=== PATIENT | male | born 1955 | race African-American/Black ===

== ENCOUNTER 2016-11-18 16:36 | Emergency (ER) | payer MEDICARE, MEDICAID ==
[2016-11-18] MEDS ORDERED: PREDNISONE 20 MG TABLET PO ONE (16:45)
[2016-11-18] MEDS ORDERED: IPRATROPIUM/ALBUTEROL 0.5-2.5 MG/3 ML AMPUL NEB ONE (16:45)
--- NOTE | 2016-11-18 16:48 | ER Document Report ---
ED Respiratory Problem - General Chief Complaint: Shortness Of Breath Stated Complaint: BREATHING ISSUES Time Seen by Provider: 11/18/16 16:45 Notes: The patient is a 61-year-old male, past medical history asthma, former smoker, presents with 3 days of increasing shortness of breath and wheezing. He is moving and his albuterol pump is packed, so he does not have access to this. His last asthma exacerbation was 4 months ago. He denies fevers, sputum, rash, chest pain, leg swelling, nausea, vomiting, back pain, hemoptysis or abdominal pain. TRAVEL OUTSIDE OF THE [place] IN LAST 30 DAYS: No - Related Data Allergies/Adverse Reactions: No Known Allergies Allergy (Unverified 11/18/16 16:40) Past Medical History - General Information source: Patient - Social History Smoking Status: Former Smoker Family History: Reviewed & Not Pertinent Patient has suicidal ideation: No Patient has homicidal ideation: No Renal/ Medical History: Denies: Hx Peritoneal Dialysis Review of Systems - Review of Systems Notes: REVIEW OF SYSTEMS: CONSTITUTIONAL: -fevers, -chills EENT: -eye pain, -difficulty swallowing, -nasal congestion CARDIOVASCULAR:-chest pain, -syncope. RESPIRATORY: +cough, +SOB GASTROINTESTINAL: -abdominal pain, - nausea, -vomiting, -diarrhea GENITOURINARY: -dysuria, -hematuria MUSCULOSKELETAL: -back pain, -neck pain SKIN: -rash or skin lesions. HEMATOLOGIC: -easy bruising or bleeding. LYMPHATIC: -swollen, enlarged glands. NEUROLOGICAL: -altered mental status or loss of consciousness, -headache, - neurologic symptoms PSYCHIATRIC: -anxiety, -depression. ALL OTHER SYSTEMS REVIEWED AND NEGATIVE. Physical Exam - Vital signs Vitals: Temp Pulse Resp BP Pulse Ox 98.0 F 77 22 H 131/87 H 95 11/18/16 16:41 11/18/16 16:41 11/18/16 16:41 11/18/16 16:41 11/18/16 16:41 - Notes Notes: PHYSICAL EXAMINATION: GENERAL: Well-appearing, well-nourished and in no acute distress. HEAD: Atraumatic, normocephalic. EYES: Pupils equal round and reactive to light, extraocular movements intact, sclera anicteric, conjunctiva are normal. ENT: nares patent, oropharynx clear without exudates. Moist mucous membranes. NECK: Normal range of motion, supple without lymphadenopathy LUNGS: Mild tachypnea, moderate wheezing B/L HEART: Regular rate and rhythm without murmurs ABDOMEN: Soft, nontender, normoactive bowel sounds. No guarding, no rebound. No masses appreciated. EXTREMITIES: Normal range of motion, no pitting or edema. No cyanosis. NEUROLOGICAL: Cranial nerves grossly intact. Normal speech, normal gait. Normal sensory and motor exams. PSYCH: Normal mood, normal affect. SKIN: Warm, Dry, normal turgor, no rashes or lesions noted. Course - Re-evaluation Re-evalutation: Patient with mild wheezing, but no respiratory distress. After steroids and duonebs, patient's wheezing has resolved and he feels much better. Will send home with steroids and a refill of his albuterol. Given strict return precautions and he understands - Vital Signs Vital signs: Temp Pulse Resp BP Pulse Ox 98.0 F 77 22 H 131/87 H 95 11/18/16 16:41 11/18/16 16:41 11/18/16 16:41 11/18/16 16:41 11/18/16 16:41 Discharge - Discharge Clinical Impression: Acute asthma exacerbation Qualifiers: Asthma severity: unspecified severity Qualified Code(s): J45.901 - Unspecified asthma with (acute) exacerbation Condition: Good Disposition: HOME, SELF-CARE Additional Instructions: ASTHMA: You have been diagnosed as having asthma. This is a condition where there is episodic tightness in the bronchial tubes. Allergies, infections, and polluted or cold air may be contributing factors. Emergency treatment of a severe asthma attack may include adrenaline shots , or bronchodilator aerosol. You may feel lightheaded, have a decreased exercise tolerance and a rapid pulse for an hour or two. Rest and get plenty of fluids. Home treatment of asthma requires bronchodilator drugs. These can be administered by injection, inhalation, or by mouth. Antibiotics and corticosteroids may be required for some patients. You should avoid chemical fumes, dusts, pollens, and exercising in very cold or dry air. If you smoke, stop!! If you develop a fever, increased wheezing, chest pain, or severe shortness of breath, you should contact the doctor immediately. STEROID MEDICATION: You have been given an injection of or oral medicine of the cortisone/ steroid class. This medication is used to control inflammation or allergy. Dexter t is usually only given for a short period of time, until the acute process subsides. There are usually no side effects from short-term use of cortisone-like medications. Some persons feel an increased sense of well-being and are not sleepy at bedtime. Long-term use of cortisone medications is best avoided, unless required for a severe condition. If your condition does not remit, or relapses after the course of corticosteroid medication, you should consult your physician. INHALED BRONCHODILATORS: You have received treatment(s) of and/or prescription for an inhaled bronchodilator -- a medication which stimulates the airways in the lung to dilate. This improves the flow of air in asthma, bronchitis, and emphysema. These medicines have some similarity to adrenaline, and can cause similar side effects: shakiness, racing heart, and a sense of nervousness. These side effects decrease with time. Contact your doctor if these side effects are severe. Do not over-use the medicine. Too-frequent use of the inhaler may make it ineffective. Call your doctor if the inhaler is not controlling your symptoms at the prescribed doses. SMOKING: If you smoke, you should stop smoking. The tar and chemicals in cigarette smoke are harmful. Smoking has been shown to cause: emphysema chronic bronchitis lung cancer mouth and throat cancer stomach and pancreas cancer premature aging defects In addition, smoking increases ear and lung infections in children of smokers. USE OF ACETAMINOPHEN: Acetaminophen may be taken for pain relief or fever control. It's much safer than aspirin, offering a wider range of "safe" dosages. It is safe during . Some brand names are Tylenol, Panadol, Datril, Anacin 3, Tempra, and Liquiprin. Acetaminophen can be repeated every four hours. The following are maximum recommended dosages: USE OF ACETAMINOPHEN (Tylenol): Acetaminophen may be taken for pain relief or fever control. It's much safer than aspirin, offering a wider range of "safe" dosages. It is safe during . Some brand names are Tylenol, Panadol, Datril, Anacin 3, Tempra, and Liquiprin. Acetaminophen can be repeated every four hours. The following are maximum recommended dosages: WEIGHT Dose Drops Elixir Chewable( 80mg) (LBS.) drprs=droppers tsp=teaspoon 6 40 mg 0.4 ml (1/2) 6-11 80 mg 0.8 ml (full) tsp 1 tab 12-16 120 mg 1 1/2 drprs 3/4 tsp 1 1/2 tabs 17-23 160 mg 2 drprs 1 tsp 2 tabs 24-30 240 mg 3 drprs 1 1/2 tsp 3 tabs 30-35 320 mg 2 tsp 4 tabs 36-41 360 mg 2 1/4 tsp 4 1/2 tabs 42-47 400 mg 2 1/2 tsp 5 tabs 48-53 480 mg 3 tsp 6 tabs 54-59 520 mg 3 1/4 tsp 6 1/2 tabs 60-64 560 mg 3 1/2 tsp 7 tabs 65-70 600 mg 3 3/4 tsp 7 1/2 tabs 71-76 640 mg 4 tsp 8 tabs 77-82 720 mg 4 1/2 tsp 9 tabs 83-88 800 mg 5 tsp 10 tabs >89 pounds or adults 650 mg to 900 mg Acetaminophen can be repeated every four hours. Maximum dose not to exceed 4000 mg a day. These maximum recommended dosages are slightly higher than the dosages written on the product container, but these dosages are very safe and below the toxic dosage for acetaminophen. FOLLOW-UP CARE: If you have been referred to a physician for follow-up care, call the physician s office for an appointment as you were instructed or within the next two days. If you experience worsening or a significant change in your symptoms, notify the physician immediately or return to the Emergency Department at any time for re-evaluation. Prescriptions: Albuterol Sulfate [Proair HFA Inhalation Aerosol 8.5 gm MDI] 2 puff IH Q4H PRN # 1 mdi PRN Reason: Prednisone [Deltasone 20 mg Tablet] 3 tab PO DAILY 5 Days
[2016-11-18 18:20] VITALS: BP 152/77
== END 2016-11-18 18:12 | disposition home or self-care (01) ==
LOC: MERGE 16:36 → ER 16:36
DX: J45.901 Unspecified asthma with (acute) exacerbation (principal); R06.02 Shortness of breath; Z87.891 Personal history of nicotine dependence
CPT/HCPCS: 94640; 99284; A9270 ×2; J7512; J7620

== ENCOUNTER 2016-12-05 01:44 | Inpatient (IN) | payer MEDICARE, MEDICAID ==
[2016-12-05] MEDS ORDERED: MAGNESIUM SULFATE/D5W 2 GM/200 ML RTUPB IV ONE (01:51)
--- NOTE | 2016-12-05 01:53 | ER Document Report ---
ED General - General Stated Complaint: SHORTNESS OF BREATH Time Seen by Provider: 12/05/16 01:49 Notes: Patient is a 61-year-old male presents with complaint of difficulty breathing and wheezing. He has a history of asthma. Former smoker. He quit 2 months ago. He has never had to be placed on a ventilator. He was seen in the emergency department recently. He was given a prescription for an inhaler but he recently moved to the area and he had a hard time getting his insurance to cover the inhaler. He has been taking the prednisone. He says his breathing has gradually gotten worse. No fevers. No chest pain. No other complaints at this time. Patient was brought in by paramedics. He was given Solu-Medrol as well as 1 DuoNeb treatment. - Related Data Allergies/Adverse Reactions: No Known Allergies Allergy (Verified 12/05/16 03:23) Past Medical History - Social History Smoking Status: Former Smoker Frequency of alcohol use: None Drug Abuse: None Family History: Reviewed & Not Pertinent Review of Systems - Review of Systems Notes: My Normal Review Basic REVIEW OF SYSTEMS: CONSTITUTIONAL : Denies fever, chills, or sweats. Denies recent illness. EENT: Denies eye, ear, throat, or mouth pain or symptoms. Denies nasal or sinus congestion. CARDIOVASCULAR: Denies chest pain. RESPIRATORY: wheezing GASTROINTESTINAL: Denies abdominal pain. Denies nausea, vomiting, or diarrhea. Denies constipation. Last BM: MUSCULOSKELETAL: Denies neck or back pain or joint pain or swelling. SKIN: Denies rash or skin lesions. NEUROLOGICAL: Denies altered mental status or loss of consciousness. Denies headache. Denies weakness or paralysis or loss of use of either side. Denies problems with gait or speech. Denies sensory or motor loss. ALL OTHER SYSTEMS REVIEWED AND NEGATIVE. Physical Exam - Vital signs Vitals: Pulse Ox 95 12/05/16 01:46 - Notes Notes: General Appearance: Well nourished, alert, cooperative, mild acute distress, no obvious discomfort. Vitals: reviewed, See vital signs table. Head: no swelling or tenderness to the head Eyes: PERRL, EOMI, Conjuctiva clear Mouth: No decreasd moisture Neck: Supple, no neck tenderness, No thyromegaly Lungs: diffuse wheezing, No rales, No rhonci, No accessory muscle use, fair air exchange bilaterally. Heart: Normal rate, Regular rythm, No murmur, no rub Abdomen: Normal BS, soft, No rigidity, No abdominal tenderness, No guarding, no rebound, no abdominal masses, no organomegaly Extremities: strength 5/5 in all extremities, good pulses in all extremities, no swelling or tenderness in the extremities, no edema. Skin: warm, dry, appropriate color, no rash Neuro: speech clear, oriented x 3, normal affect, responds appropriately to questions. Course - Re-evaluation Re-evalutation: 12/05/16 02:46 Patient's work of breathing is improved however his lung lares show very tight wheezing. I will give him 2 more DuoNeb treatments and then reassess. - Vital Signs Vital signs: Temp Pulse Resp BP Pulse Ox 98.9 F 62 20 111/76 95 12/05/16 02:43 12/05/16 02:43 12/05/16 02:43 12/05/16 02:43 12/05/16 02:43 - Laboratory Result Diagrams: 12/05/16 01:55 12/05/16 01:55 Laboratory results interpreted by me: 12/05/16 12/05/16 12/05/16 01:55 01:55 02:24 WBC 13.2 H RDW 14.8 H VBG pH 7.44 H Chloride 109 H Total Protein 5.9 L Albumin 3.3 L Urine Urobilinogen 12/05/16 02:25 WBC RDW VBG pH Chloride Total Protein Albumin Urine Urobilinogen 2.0 H - EKG Interpretation by Me Additional EKG results interpreted by me: 12/05/16 02:50 EKG is reviewed and interpreted by me. EKG shows sinus bradycardia with rate of [address] segment elevation or depression. No ischemic T-wave inversions. IA interval, QRS duration, QTc intervals are within normal range. No old EKG available for comparison. - Transfer of Care Notes: 12/05/16 04:11 Patient continues to have a lot of tightness and wheezing in his lungs. He still has mild tachypnea but is not working hard to breathe. Due to his failure of outpatient therapy as well as his continued wheezing and decreased air movement I think it appropriate to admit him. Chest x-ray is read as possible pneumonia. He has had no fevers and I do not see pneumonia on chest x- ray myself. These findings seem much more consistent with just an asthma exacerbation. I have spoken with the hospitalist who agrees to admit the patient. Dictation of this chart was performed using voice recognition software; therefore, there may be some unintended grammatical errors. Discharge - Discharge Clinical Impression: Asthma Qualifiers: Asthma severity: unspecified severity Asthma complication type: with acute exacerbation Qualified Code(s): J45.901 - Unspecified asthma with (acute) exacerbation Condition: Stable Disposition: ADMITTED OBSERVATION Admitting Provider: Hospitalist Unit Admitted: Telemetry
[2016-12-05 02:08] LABS: ABSOLUTE BASOPHILS # (AUTO) 0.1 10^3/uL (0.0-0.2); ABSOLUTE EOSINOPHILS # (AUTO) 0.3 10^3/uL (0.0-0.6); ABSOLUTE LYMPHOCYTES (AUTO) 4.3 10^3/uL (0.5-4.7); ABSOLUTE MONOCYTES (AUTO) 1.2 10^3/uL (0.1-1.4); ABSOLUTE NEUT (AUTO) 7.3 10^3/uL (1.7-8.2); BASOPHILS % (AUTO) 0.9 % (0-2); EOSINOPHILS % (AUTO) 2.6 % (0-6); HEMATOCRIT 47.5 % (37.9-51.0); HEMOGLOBIN 15.6 g/dL (13.5-17.0); HGB HCT DIFFERENCE -0.7; LYMPHOCYTES % (AUTO) 32.3 % (13-45); MEAN CORPUSCULAR HEMOGLOBIN 30.3 pg (27.0-33.4); MEAN CORPUSCULAR HGB CONC 32.9 g/dL (32.0-36.0); MEAN CORPUSCULAR VOLUME 92 fl (80-97); MONOCYTES % (AUTO) 8.9 % (3-13); RED BLOOD COUNT 5.16 10^6/uL (4.35-5.55); RED CELL DISTRIBUTION WIDTH 14.8 % (11.5-14.0); SEGMENTED NEUTROPHILS % (AUTO) 55.3 % (42-78); WHITE BLOOD COUNT 13.2 10^3/uL (4.0-10.5)
[2016-12-05] MEDS: MAGNESIUM SULFATE/D5W 100 ML IV SCH ×2 (02:09→02:10)
--- NOTE | 2016-12-05 02:21 | RADIOLOGY REPORT (SQ) ---
EXAM DESCRIPTION: CHEST SINGLE VIEW COMPLETED DATE/TIME: 12/05/2016 2:11 am REASON FOR STUDY: SHORTNESS OF BREATH COMPARISON: None. EXAM PARAMETERS: NUMBER OF VIEWS: One view. TECHNIQUE: Single frontal radiographic view of the chest acquired. RADIATION DOSE: NA LIMITATIONS: None. FINDINGS: LUNGS AND PLEURA: Moderate left basilar opacity, mixed bandlike/streaky. MEDIASTINUM AND HILAR STRUCTURES: No masses. Contour normal. HEART AND VASCULAR STRUCTURES: Heart normal in size. Normal vasculature. BONES: No acute findings. HARDWARE: None in the chest. OTHER: No other significant finding. IMPRESSION: Left basilar pneumonia, atelectasis, and/or scar. TECHNICAL DOCUMENTATION: JOB ID: [id number]
[2016-12-05 02:24] LABS: ALANINE AMINOTRANSFERASE 28 U/L (21-72); ALBUMIN 3.3 g/dL (3.5-5.0); ALKALINE PHOSPHATASE 99 U/L (38-126); ANION GAP 6 (5-19); ASPARTATE AMINO TRANSFERASE 18 U/L (17-59); BILIRUBIN,DIRECT 0.3 mg/dL (0.0-0.4); BILIRUBIN,TOTAL 0.4 mg/dL (0.2-1.3); BLOOD UREA NITROGEN 18 mg/dL (7-20); CALCIUM 9.1 mg/dL (8.4-10.2); CARBON DIOXIDE 27 mmol/L (22-30); CHLORIDE 109 mmol/L (98-107); CREATININE RESULT 0.92 mg/dL (0.52-1.25); GLUCOSE 94 mg/dL (75-110); POTASSIUM 4.1 mmol/L (3.6-5.0); SODIUM 141.8 mmol/L (137-145); TOTAL PROTEIN 5.9 g/dL (6.3-8.2)
[2016-12-05] MEDS ORDERED: IPRATROPIUM/ALBUTEROL 0.5-2.5 MG/3 ML AMPUL NEB ONE (02:46)
[2016-12-05 02:48] LABS: VENOUS BLOOD BASE EXCESS 1.5 mmol/L; VENOUS BLOOD HCO3 25.5 mmol/L (20-32); VENOUS BLOOD PCO2 38.6 mmHg (35-63); VENOUS BLOOD PH 7.44 (7.30-7.42)
[2016-12-05 02:50] LABS: APPEARANCE,URINE CLEAR; BILIRUBIN,URINE NEGATIVE (NEGATIVE); GLUCOSE, URINE NEGATIVE (NEGATIVE); KETONES,URINE NEGATIVE (NEGATIVE); LEUKOCYTE ESTERASE,URINE NEGATIVE (NEGATIVE); NITRITE,URINE NEGATIVE (NEGATIVE); PROTEIN,URINE NEGATIVE (NEGATIVE); URINE SPECIFIC GRAVITY 1.025
[2016-12-05] MEDS ORDERED: ALBUTEROL SULFATE 0.083% NEB 2.5 MG/3 ML AMPUL NEB ONE (04:05)
[2016-12-05] MEDS ORDERED: IPRATROPIUM/ALBUTEROL 0.5-2.5 MG/3 ML AMPUL NEB PRN (04:15)
[2016-12-05] MEDS ORDERED: ACETAMINOPHEN 325 MG TABLET PO PRN (04:15)
[2016-12-05 04:40] LABS: MAGNESIUM 2.1 mg/dL (1.6-2.3)
[2016-12-05 04:52] LABS: CREATINE KINASE MB 0.92 ng/mL (<4.55)
[2016-12-05 05:02] LABS: TROPONIN I < 0.012 ng/mL
[2016-12-05] MEDS ORDERED: FLUTICASONE NASAL SPRAY 50 MCG/SPRY 120 SPRAY/16 GM NASL ONE (05:15)
--- NOTE | 2016-12-05 05:33 | PDOC H&P ---
History of Present Illness Admission Date/PCP: 12/05/16 04:15 DUARTE PERAZA MD Patient complains of: Shortness of breath and cough History of Present Illness: KENN JESSICA is a 61 year old male with a past medical history of COPD, chronic bronchitis, chronic pain, hypertension, Tobacco Dependence, and unclear recent diagnosis of renal tumor. Patient states he been in his usual state of health until approximately 6 hours prior to presentation having exceptional exacerbation of shortness of breath with nonproductive cough and wheeze similar to multiple previous episodes. He has recently relocated from [place] and run out of his usual inhaler. He states discontinuation of tobacco 3 months ago but smells of smoke and resides with a smoker, denies any known triggers of asthma. He denies chest pain nausea vomiting or diaphoresis. In the emergency room he is received several inhaler treatments of albuterol and Atrovent with magnesium IV and steroids. He is somewhat improved and referred to the hospitalist for admission. Past Medical History Cardiac Medical History: Reports: Hypertension Pulmonary Medical History: Reports: Bronchitis, Chronic Obstructive Pulmonary Disease (COPD) Musculoskeltal Medical History: Reports: Arthritis Psychiatric Medical History: Reports: Tobacco Dependency, Other - Opiate dependent chronic pain though presents without prescription bottles. Social History Information Source: Patient Lives with: Alone Smoking Status: Former Smoker Cigarettes Packs Per Day: 40 Frequency of Alcohol Use: Rare Drugs: None - Advance Directive Resuscitation Status: Full Code Family History Family History: COPD Parental Family History Reviewed: Yes Children Family History Reviewed: Yes Sibling(s) Family History Reviewed.: Yes Medication/Allergy Allergies/Adverse Reactions: No Known Allergies Allergy (Verified 12/05/16 03:23) Review of Systems Constitutional: ABSENT: chills, fever(s), headache(s), weight gain, weight loss Eyes: ABSENT: visual disturbances Ears: ABSENT: hearing changes Cardiovascular: ABSENT: chest pain, dyspnea on exertion, edema, orthropnea, palpitations Respiratory: ABSENT: cough, hemoptysis Gastrointestinal: ABSENT: abdominal pain, constipation, diarrhea, hematemesis, hematochezia, nausea, vomiting Genitourinary: ABSENT: dysuria, hematuria Musculoskeletal: ABSENT: joint swelling Integumentary: ABSENT: rash, wounds Neurological: ABSENT: abnormal gait, abnormal speech, confusion, dizziness, focal weakness, syncope Psychiatric: ABSENT: anxiety, depression, homidical ideation, suicidal ideation Endocrine: ABSENT: cold intolerance, heat intolerance, polydipsia, polyuria Hematologic/Lymphatic: ABSENT: easy bleeding, easy bruising Physical Exam Vital Signs: Temp Pulse Resp BP Pulse Ox 97.8 F 62 18 127/72 H 96 12/05/16 03:03 12/05/16 02:43 12/05/16 04:01 12/05/16 04:01 12/05/16 04:01 General appearance: PRESENT: cooperative, mild distress, well-developed, well- nourished Head exam: PRESENT: atraumatic, normocephalic Eye exam: PRESENT: conjunctiva pink, EOMI, PERRLA. ABSENT: scleral icterus Ear exam: PRESENT: normal external ear exam Mouth exam: PRESENT: moist, tongue midline Neck exam: ABSENT: carotid bruit, JVD, lymphadenopathy, thyromegaly Respiratory exam: PRESENT: accessory muscle use, prolonged expiratory phas, rales, tachypnea, wheezes Cardiovascular exam: PRESENT: RRR. ABSENT: diastolic murmur, rubs, systolic murmur Pulses: PRESENT: normal dorsalis pedis pul Vascular exam: PRESENT: normal capillary refill GI/Abdominal exam: PRESENT: normal bowel sounds, soft. ABSENT: distended, guarding, mass, organolmegaly, rebound, tenderness Rectal exam: PRESENT: deferred Extremities exam: PRESENT: full ROM. ABSENT: calf tenderness, clubbing, pedal edema Neurological exam: PRESENT: alert, awake, oriented to person, oriented to place , oriented to time, oriented to situation, CN II-XII grossly intact. ABSENT: motor sensory deficit Psychiatric exam: PRESENT: appropriate affect, normal mood. ABSENT: homicidal ideation, suicidal ideation Skin exam: PRESENT: dry, intact, warm. ABSENT: cyanosis, rash Results Impressions: Chest X-Ray 12/05/16 01:46 IMPRESSION: Left basilar pneumonia, atelectasis, and/or scar. Assessment & Plan - Diagnosis (1) COPD exacerbation Is this a current diagnosis for this admission?: YesPlan: Secondary to bronchitis, aggressive pulmonary toilet, albuterol, Atrovent, Flonase and prednisone (2) Acute exacerbation of chronic bronchitis Is this a current diagnosis for this admission?: YesPlan: Empiric antibiotics, flutter valve, tobacco cessation counseling. (3) Tobacco abuse Is this a current diagnosis for this admission?: YesPlan: Tobacco Dependence patient received tobacco cessation counseling and offered nicotine replacement options - Time Time Spent: 30 to 50 Minutes - Inpatient Certification Medical Necessity: Need Close Monitoring Due to Risk of Patient Decompensation
[2016-12-05] MEDS: METHYLPREDNISOLONE INJ 125 MG/2 ML SDV IV SCH ×3 (06:46→21:30)
[2016-12-05] MEDS: HEPARIN SOD (PORCINE) 5,000 UNIT/ML 1 ML SYRINGE SUBCUT SCH ×3 (06:46→21:30)
[2016-12-05] MEDS: LEVOFLOXACIN 750 MG/D5W RTU 750 MG/150 ML RTUPB IV SCH (06:47)
[2016-12-05] MEDS: LANSOPRAZOLE 30 MG TAB.RAP.DR PO SCH ×2 (06:47→17:32)
[2016-12-05] MEDS: IPRATROPIUM/ALBUTEROL 0.5-2.5 MG/3 ML AMPUL NEB SCH ×3 (08:21→19:59)
[2016-12-05] MEDS: LORATADINE 10 MG TABLET PO SCH (09:04)
[2016-12-05] MEDS: FLUTICASONE NASAL SPRAY 50 MCG/SPRY 120 SPRAY/16 GM NASL SCH ×2 (09:04→21:30)
[2016-12-05] MEDS: DOCUSATE SODIUM 100 MG CAPSULE PO SCH ×2 (09:04→17:32)
--- NOTE | 2016-12-05 09:10 | EKG REPORT ---
SEVERITY:- NORMAL ECG - SINUS RHYTHM : Confirmed by: Susana Tya MD 05-Dec-2016 09:09:47
[2016-12-05 10:00] LABS: CREATINE KINASE MB 0.98 ng/mL (<4.55)
[2016-12-05 10:04] LABS: TROPONIN I < 0.012 ng/mL
--- NOTE | 2016-12-05 13:57 | PDOC PROGRESS REPORT ---
Subjective Progress Note for:: 12/05/16 Subjective:: Complains of shortness of breath but reports it is better Physical Exam Vital Signs: Temp Pulse Resp BP Pulse Ox 98.0 F 70 16 146/65 H 100 12/05/16 12:01 12/05/16 12:01 12/05/16 12:01 12/05/16 12:01 12/05/16 12:01 Intake & Output 12/04/16 12/05/16 12/06/16 06:59 06:59 06:59 Intake Total 690 Balance 690 Weight 77.11 kg General appearance: PRESENT: no acute distress Eye exam: PRESENT: conjunctiva pink. ABSENT: scleral icterus Ear exam: PRESENT: normal external ear exam Mouth exam: PRESENT: moist, tongue midline Neck exam: ABSENT: JVD Respiratory exam: PRESENT: wheezes - Bilateral expiratory wheezes. ABSENT: rales, rhonchi Cardiovascular exam: PRESENT: RRR. ABSENT: diastolic murmur, rubs, systolic murmur GI/Abdominal exam: PRESENT: normal bowel sounds, soft. ABSENT: distended, guarding, mass, organolmegaly, rebound, tenderness Extremities exam: ABSENT: calf tenderness, clubbing, pedal edema Neurological exam: PRESENT: alert, awake, oriented to person, oriented to place , oriented to time, oriented to situation, CN II-XII grossly intact. ABSENT: motor sensory deficit Psychiatric exam: PRESENT: appropriate affect Skin exam: PRESENT: dry, intact, warm. ABSENT: cyanosis, rash Results Laboratory Results: 12/05/16 12/05/16 08:47 08:47 Creatine Kinase 115 CK-MB (CK-2) 0.98 Troponin I < 0.012 Impressions: Chest X-Ray 12/05/16 01:46 IMPRESSION: Left basilar pneumonia, atelectasis, and/or scar. Assessment & Plan - Diagnosis (1) COPD exacerbation Is this a current diagnosis for this admission?: YesPlan: The patient still has expiratory wheezes. Will continue with the Solu-Medrol, nebulizers. (2) Hypertension Is this a current diagnosis for this admission?: YesPlan: Blood pressure is under borderline control without medications. We will continue to monitor. - Time Time Spent with patient: 25-34 minutes - Inpatient Certification Medical Necessity: Need Close Monitoring Due to Risk of Patient Decompensation
[2016-12-05 15:48] LABS: CREATINE KINASE MB 0.98 ng/mL (<4.55)
[2016-12-05 15:57] LABS: TROPONIN I < 0.012 ng/mL
[2016-12-06] MEDS: IPRATROPIUM/ALBUTEROL 0.5-2.5 MG/3 ML AMPUL NEB SCH ×4 (02:05→20:29)
[2016-12-06 05:04] LABS: HEMATOCRIT 43.6 % (37.9-51.0); HEMOGLOBIN 14.2 g/dL (13.5-17.0); MEAN CORPUSCULAR HEMOGLOBIN 30.3 pg (27.0-33.4); MEAN CORPUSCULAR HGB CONC 32.6 g/dL (32.0-36.0); MEAN CORPUSCULAR VOLUME 93 fl (80-97); RED BLOOD COUNT 4.69 10^6/uL (4.35-5.55); WHITE BLOOD COUNT 23.6 10^3/uL (4.0-10.5)
[2016-12-06 05:20] LABS: ANION GAP 12 (5-19); BLOOD UREA NITROGEN 19 mg/dL (7-20); CALCIUM 9.2 mg/dL (8.4-10.2); CARBON DIOXIDE 17 mmol/L (22-30); CHLORIDE 109 mmol/L (98-107); CREATININE RESULT 0.98 mg/dL (0.52-1.25); GLUCOSE 198 mg/dL (75-110); POTASSIUM 4.3 mmol/L (3.6-5.0); SODIUM 138.3 mmol/L (137-145)
[2016-12-06 05:33] LABS: BAND NEUTROPHILS % (MANUAL) 2 % (3-5); BASOPHILS % (MANUAL) 0 % (0-2); EOSINOPHILS % (MANUAL) 0 % (0-6); LYMPHOCYTES % (MANUAL) 4 % (13-45); TOTAL CELLS COUNTED 100
[2016-12-06 05:34] LABS: ANISOCYTOSIS SLIGHT; BURR CELLS SLIGHT; SCHISTOCYTES SLIGHT; TOXIC GRANULATION SLIGHT
[2016-12-06] MEDS: METHYLPREDNISOLONE INJ 125 MG/2 ML SDV IV SCH ×3 (05:41→21:22)
[2016-12-06] MEDS: LANSOPRAZOLE 30 MG TAB.RAP.DR PO SCH ×2 (05:41→17:29)
[2016-12-06] MEDS: HEPARIN SOD (PORCINE) 5,000 UNIT/ML 1 ML SYRINGE SUBCUT SCH ×3 (05:41→21:18)
[2016-12-06] MEDS: LEVOFLOXACIN 750 MG/D5W RTU 750 MG/150 ML RTUPB IV SCH (05:41)
[2016-12-06] MEDS: DOCUSATE SODIUM 100 MG CAPSULE PO SCH ×2 (10:07→17:28)
[2016-12-06] MEDS: LORATADINE 10 MG TABLET PO SCH (10:08)
[2016-12-06] MEDS: FLUTICASONE NASAL SPRAY 50 MCG/SPRY 120 SPRAY/16 GM NASL SCH ×2 (10:08→21:22)
--- NOTE | 2016-12-06 11:02 | PDOC PROGRESS REPORT ---
Subjective Progress Note for:: 12/06/16 Subjective:: Complains of shortness of breath Physical Exam Vital Signs: Temp Pulse Resp BP Pulse Ox 97.6 F 72 18 112/73 98 12/06/16 07:52 12/06/16 08:27 12/06/16 08:27 12/06/16 07:52 12/06/16 08:27 Intake & Output 12/05/16 12/06/16 12/07/16 06:59 06:59 06:59 Intake Total 1440 Balance 1440 Weight 77.11 kg General appearance: PRESENT: no acute distress Eye exam: PRESENT: conjunctiva pink. ABSENT: scleral icterus Mouth exam: PRESENT: moist, tongue midline Neck exam: ABSENT: JVD Respiratory exam: PRESENT: wheezes. ABSENT: rales, rhonchi Cardiovascular exam: PRESENT: RRR. ABSENT: diastolic murmur, rubs, systolic murmur GI/Abdominal exam: PRESENT: normal bowel sounds, soft. ABSENT: distended, guarding, mass, organolmegaly, rebound, tenderness Extremities exam: ABSENT: calf tenderness, clubbing, pedal edema Neurological exam: PRESENT: alert, awake, oriented to person, oriented to place , oriented to time, oriented to situation, CN II-XII grossly intact. ABSENT: motor sensory deficit Psychiatric exam: PRESENT: appropriate affect Skin exam: PRESENT: dry, intact, warm. ABSENT: cyanosis, rash Results Laboratory Results: 12/06/16 03:52 12/06/16 03:52 12/06/16 12/06/16 03:52 03:52 WBC 23.6 H RBC 4.69 Hgb 14.2 Hct 43.6 MCV 93 MCH 30.3 MCHC 32.6 RDW 15.0 H Plt Count 141 L Seg Neutrophils % Not Reportable Lymphocytes % Not Reportable Monocytes % Not Reportable Eosinophils % Not Reportable Basophils % Not Reportable Absolute Neutrophils Not Reportable Absolute Lymphocytes Not Reportable Absolute Monocytes Not Reportable Absolute Eosinophils Not Reportable Absolute Basophils Not Reportable Sodium 138.3 Potassium 4.3 Chloride 109 H Carbon Dioxide 17 L Anion Gap 12 BUN 19 Creatinine 0.98 Est GFR ( Amer) > 60 Est GFR (Non-Af Amer) > 60 Glucose 198 H Calcium 9.2 12/05/16 12/05/16 12/05/16 08:47 08:47 14:44 Creatine Kinase 115 109 CK-MB (CK-2) 0.98 Troponin I < 0.012 12/05/16 14:44 Creatine Kinase CK-MB (CK-2) 0.98 Troponin I < 0.012 Impressions: Chest X-Ray 12/05/16 01:46 IMPRESSION: Left basilar pneumonia, atelectasis, and/or scar. Assessment & Plan - Diagnosis (1) COPD exacerbation Is this a current diagnosis for this admission?: YesPlan: The patient still has expiratory wheezes. Will continue with the Solu-Medrol, nebulizers. (2) Hypertension Is this a current diagnosis for this admission?: YesPlan: Blood pressure is under control without medications. We will continue to monitor. - Time Time Spent with patient: 25-34 minutes - Inpatient Certification Medical Necessity: Need Close Monitoring Due to Risk of Patient Decompensation
[2016-12-07] MEDS: IPRATROPIUM/ALBUTEROL 0.5-2.5 MG/3 ML AMPUL NEB SCH ×4 (02:22→19:47)
[2016-12-07] MEDS: HEPARIN SOD (PORCINE) 5,000 UNIT/ML 1 ML SYRINGE SUBCUT SCH ×3 (05:07→22:25)
[2016-12-07] MEDS: LANSOPRAZOLE 30 MG TAB.RAP.DR PO SCH ×2 (05:10→17:20)
[2016-12-07] MEDS: LEVOFLOXACIN 750 MG/D5W RTU 750 MG/150 ML RTUPB IV SCH (05:10)
[2016-12-07] MEDS: METHYLPREDNISOLONE INJ 125 MG/2 ML SDV IV SCH ×3 (05:10→22:24)
[2016-12-07 06:22] LABS: HEMATOCRIT 44.4 % (37.9-51.0); HEMOGLOBIN 14.8 g/dL (13.5-17.0); MEAN CORPUSCULAR HEMOGLOBIN 30.5 pg (27.0-33.4); MEAN CORPUSCULAR HGB CONC 33.3 g/dL (32.0-36.0); MEAN CORPUSCULAR VOLUME 92 fl (80-97); RED BLOOD COUNT 4.85 10^6/uL (4.35-5.55); RED CELL DISTRIBUTION WIDTH 15.4 % (11.5-14.0); WHITE BLOOD COUNT 20.1 10^3/uL (4.0-10.5)
[2016-12-07 06:28] LABS: BASOPHILS % (MANUAL) 0 % (0-2); EOSINOPHILS % (MANUAL) 0 % (0-6); LYMPHOCYTES % (MANUAL) 3 % (13-45); TOTAL CELLS COUNTED 100
[2016-12-07 06:29] LABS: ANISOCYTOSIS 1+; TOXIC VACUOLATION PRESENT
[2016-12-07 06:31] LABS: ANION GAP 10 (5-19); BLOOD UREA NITROGEN 24 mg/dL (7-20); CALCIUM 9.3 mg/dL (8.4-10.2); CARBON DIOXIDE 22 mmol/L (22-30); CHLORIDE 108 mmol/L (98-107); CREATININE RESULT 1.04 mg/dL (0.52-1.25); GLUCOSE 143 mg/dL (75-110); SODIUM 139.9 mmol/L (137-145)
[2016-12-07 06:33] LABS: POTASSIUM 4.5 mmol/L (3.6-5.0)
[2016-12-07] MEDS: FLUTICASONE NASAL SPRAY 50 MCG/SPRY 120 SPRAY/16 GM NASL SCH ×2 (09:43→22:24)
[2016-12-07] MEDS: DOCUSATE SODIUM 100 MG CAPSULE PO SCH ×2 (09:43→17:21)
[2016-12-07] MEDS: LORATADINE 10 MG TABLET PO SCH (09:43)
--- NOTE | 2016-12-07 12:54 | PDOC PROGRESS REPORT ---
Subjective Progress Note for:: 12/07/16 Subjective:: Continues to have complaints of wheezing Physical Exam Vital Signs: Temp Pulse Resp BP Pulse Ox 97.3 F 69 20 139/65 H 98 12/07/16 08:00 12/07/16 08:07 12/07/16 08:07 12/07/16 08:00 12/07/16 08:07 Intake & Output 12/06/16 12/07/16 12/08/16 06:59 06:59 06:59 Intake Total 1440 1784 Balance 1440 1784 Weight 76.6 kg General appearance: PRESENT: no acute distress Eye exam: PRESENT: conjunctiva pink. ABSENT: scleral icterus Mouth exam: PRESENT: moist, tongue midline Neck exam: ABSENT: JVD Respiratory exam: PRESENT: wheezes - Bilateral expiratory wheezes. ABSENT: rales, rhonchi Cardiovascular exam: PRESENT: RRR. ABSENT: diastolic murmur, rubs, systolic murmur GI/Abdominal exam: PRESENT: normal bowel sounds, soft. ABSENT: distended, guarding, mass, organolmegaly, rebound, tenderness Extremities exam: ABSENT: calf tenderness, clubbing, pedal edema Neurological exam: PRESENT: alert, awake, oriented to person, oriented to place , oriented to time, oriented to situation, CN II-XII grossly intact. ABSENT: motor sensory deficit Psychiatric exam: PRESENT: appropriate affect Skin exam: PRESENT: dry, intact, warm. ABSENT: cyanosis, rash Results Laboratory Results: 12/07/16 04:52 12/07/16 04:52 12/07/16 12/07/16 04:52 04:52 WBC 20.1 H RBC 4.85 Hgb 14.8 Hct 44.4 MCV 92 MCH 30.5 MCHC 33.3 RDW 15.4 H Plt Count 142 L Seg Neutrophils % Not Reportable Lymphocytes % Not Reportable Monocytes % Not Reportable Eosinophils % Not Reportable Basophils % Not Reportable Absolute Neutrophils Not Reportable Absolute Lymphocytes Not Reportable Absolute Monocytes Not Reportable Absolute Eosinophils Not Reportable Absolute Basophils Not Reportable Sodium 139.9 Potassium 4.5 Chloride 108 H Carbon Dioxide 22 Anion Gap 10 BUN 24 H Creatinine 1.04 Est GFR ( Amer) > 60 Est GFR (Non-Af Amer) > 60 Glucose 143 H Calcium 9.3 12/05/16 12/05/16 12/05/16 08:47 08:47 14:44 Creatine Kinase 115 109 CK-MB (CK-2) 0.98 Troponin I < 0.012 12/05/16 14:44 Creatine Kinase CK-MB (CK-2) 0.98 Troponin I < 0.012 Impressions: Chest X-Ray 12/05/16 01:46 IMPRESSION: Left basilar pneumonia, atelectasis, and/or scar. Assessment & Plan - Diagnosis (1) COPD exacerbation Is this a current diagnosis for this admission?: YesPlan: The patient still has expiratory wheezes. Will continue with the Solu-Medrol, nebulizers. (2) Hypertension Is this a current diagnosis for this admission?: YesPlan: Blood pressure is under control without medications. We will continue to monitor. - Time Time Spent with patient: 15-24 minutes - Inpatient Certification Medical Necessity: Need Close Monitoring Due to Risk of Patient Decompensation
[2016-12-08] MEDS: IPRATROPIUM/ALBUTEROL 0.5-2.5 MG/3 ML AMPUL NEB SCH ×4 (02:34→20:36)
[2016-12-08 05:30] LABS: ANION GAP 7 (5-19); BLOOD UREA NITROGEN 25 mg/dL (7-20); CALCIUM 9.2 mg/dL (8.4-10.2); CARBON DIOXIDE 24 mmol/L (22-30); CHLORIDE 106 mmol/L (98-107); CREATININE RESULT 1.05 mg/dL (0.52-1.25); GLUCOSE 142 mg/dL (75-110); POTASSIUM 4.9 mmol/L (3.6-5.0); SODIUM 136.7 mmol/L (137-145)
[2016-12-08 05:31] LABS: HEMATOCRIT 43.4 % (37.9-51.0); HEMOGLOBIN 14.3 g/dL (13.5-17.0); HGB HCT DIFFERENCE -0.5; MEAN CORPUSCULAR HEMOGLOBIN 30.7 pg (27.0-33.4); MEAN CORPUSCULAR HGB CONC 32.9 g/dL (32.0-36.0); MEAN CORPUSCULAR VOLUME 93 fl (80-97); RED BLOOD COUNT 4.66 10^6/uL (4.35-5.55); RED CELL DISTRIBUTION WIDTH 15.4 % (11.5-14.0); WHITE BLOOD COUNT 16.8 10^3/uL (4.0-10.5)
[2016-12-08 05:47] LABS: BAND NEUTROPHILS % (MANUAL) 1 % (3-5); BASOPHILS % (MANUAL) 0 % (0-2); EOSINOPHILS % (MANUAL) 0 % (0-6); LYMPHOCYTES % (MANUAL) 9 % (13-45); TOTAL CELLS COUNTED 100
[2016-12-08 05:48] LABS: ANISOCYTOSIS 1+; TOXIC VACUOLATION PRESENT
[2016-12-08] MEDS: HEPARIN SOD (PORCINE) 5,000 UNIT/ML 1 ML SYRINGE SUBCUT SCH ×3 (06:09→22:32)
[2016-12-08] MEDS: LEVOFLOXACIN 750 MG TABLET PO SCH (06:09)
[2016-12-08] MEDS: LANSOPRAZOLE 30 MG TAB.RAP.DR PO SCH ×2 (06:09→17:40)
[2016-12-08] MEDS: METHYLPREDNISOLONE INJ 125 MG/2 ML SDV IV SCH ×2 (06:09→14:58)
[2016-12-08] MEDS: FLUTICASONE NASAL SPRAY 50 MCG/SPRY 120 SPRAY/16 GM NASL SCH ×2 (09:20→22:32)
[2016-12-08] MEDS: DOCUSATE SODIUM 100 MG CAPSULE PO SCH ×2 (09:20→17:40)
[2016-12-08] MEDS: LORATADINE 10 MG TABLET PO SCH (09:20)
--- NOTE | 2016-12-08 09:21 | PDOC PROGRESS REPORT ---
Subjective Progress Note for:: 12/08/16 Subjective:: Continues to have complaints of wheezing Physical Exam Vital Signs: Temp Pulse Resp BP Pulse Ox 97.7 F 59 L 18 135/63 H 99 12/08/16 08:00 12/08/16 08:14 12/08/16 08:14 12/08/16 08:00 12/08/16 08:14 Intake & Output 12/07/16 12/08/16 12/09/16 06:59 06:59 06:59 Intake Total 1784 830 Balance 1784 830 Weight 76.6 kg 77.2 kg General appearance: PRESENT: no acute distress Eye exam: PRESENT: conjunctiva pink. ABSENT: scleral icterus Mouth exam: PRESENT: moist, tongue midline Neck exam: ABSENT: JVD Respiratory exam: PRESENT: wheezes - Bilateral expiratory wheezes. ABSENT: rales, rhonchi Cardiovascular exam: PRESENT: RRR. ABSENT: diastolic murmur, rubs, systolic murmur GI/Abdominal exam: PRESENT: normal bowel sounds, soft. ABSENT: distended, guarding, mass, organolmegaly, rebound, tenderness Extremities exam: ABSENT: calf tenderness, clubbing, pedal edema Neurological exam: PRESENT: alert, awake, oriented to person, oriented to place , oriented to time, oriented to situation, CN II-XII grossly intact. ABSENT: motor sensory deficit Psychiatric exam: PRESENT: appropriate affect Skin exam: PRESENT: dry, intact, warm. ABSENT: cyanosis, rash Results Laboratory Results: 12/08/16 04:26 12/08/16 04:26 12/08/16 12/08/16 04:26 04:26 WBC 16.8 H RBC 4.66 Hgb 14.3 Hct 43.4 MCV 93 MCH 30.7 MCHC 32.9 RDW 15.4 H Plt Count 150 Seg Neutrophils % Not Reportable Lymphocytes % Not Reportable Monocytes % Not Reportable Eosinophils % Not Reportable Basophils % Not Reportable Absolute Neutrophils Not Reportable Absolute Lymphocytes Not Reportable Absolute Monocytes Not Reportable Absolute Eosinophils Not Reportable Absolute Basophils Not Reportable Sodium 136.7 L Potassium 4.9 Chloride 106 Carbon Dioxide 24 Anion Gap 7 BUN 25 H Creatinine 1.05 Est GFR ( Amer) > 60 Est GFR (Non-Af Amer) > 60 Glucose 142 H Calcium 9.2 12/05/16 12/05/1617 08:47 08:47 14:44 Creatine Kinase 115 109 CK-MB (CK-2) 0.98 Troponin I < 0.012 12/05/16 14:44 Creatine Kinase CK-MB (CK-2) 0.98 Troponin I < 0.012 Impressions: Chest X-Ray 12/05/16 01:46 IMPRESSION: Left basilar pneumonia, atelectasis, and/or scar. Assessment & Plan - Diagnosis (1) COPD exacerbation Is this a current diagnosis for this admission?: YesPlan: The patient still has expiratory wheezes. Will continue with the Solu-Medrol, nebulizers. (2) Hypertension Is this a current diagnosis for this admission?: YesPlan: Blood pressure is under control without medications. We will continue to monitor. - Time Time Spent with patient: 25-34 minutes - Inpatient Certification Medical Necessity: Need Close Monitoring Due to Risk of Patient Decompensation
[2016-12-08] MEDS ORDERED: PREDNISONE 20 MG TABLET PO ONE (16:00)
[2016-12-09] MEDS: IPRATROPIUM/ALBUTEROL 0.5-2.5 MG/3 ML AMPUL NEB SCH ×4 (02:05→20:13)
[2016-12-09] MEDS: LEVOFLOXACIN 750 MG TABLET PO SCH (05:18)
[2016-12-09] MEDS: LANSOPRAZOLE 30 MG TAB.RAP.DR PO SCH ×2 (05:19→16:57)
[2016-12-09] MEDS: HEPARIN SOD (PORCINE) 5,000 UNIT/ML 1 ML SYRINGE SUBCUT SCH ×3 (05:19→21:29)
[2016-12-09 06:34] LABS: HEMATOCRIT 44.1 % (37.9-51.0); HEMOGLOBIN 14.7 g/dL (13.5-17.0); MEAN CORPUSCULAR HEMOGLOBIN 30.7 pg (27.0-33.4); MEAN CORPUSCULAR HGB CONC 33.4 g/dL (32.0-36.0); MEAN CORPUSCULAR VOLUME 92 fl (80-97); RED BLOOD COUNT 4.79 10^6/uL (4.35-5.55); RED CELL DISTRIBUTION WIDTH 15.4 % (11.5-14.0); WHITE BLOOD COUNT 15.1 10^3/uL (4.0-10.5)
[2016-12-09 06:48] LABS: ANION GAP 5 (5-19); BLOOD UREA NITROGEN 21 mg/dL (7-20); CALCIUM 8.7 mg/dL (8.4-10.2); CARBON DIOXIDE 26 mmol/L (22-30); CHLORIDE 106 mmol/L (98-107); GLUCOSE 117 mg/dL (75-110); POTASSIUM 4.2 mmol/L (3.6-5.0); SODIUM 136.7 mmol/L (137-145)
[2016-12-09 07:19] LABS: BASOPHILS % (MANUAL) 0 % (0-2); EOSINOPHILS % (MANUAL) 0 % (0-6); LYMPHOCYTES % (MANUAL) 11 % (13-45); TOTAL CELLS COUNTED 100
[2016-12-09 07:20] LABS: RBC MORPHOLOGY COMMENT NORMO-CYTIC/CHROMIC
--- NOTE | 2016-12-09 10:17 | PDOC PROGRESS REPORT ---
Subjective Progress Note for:: 12/09/16 Subjective:: Continues to have complaints of wheezing Physical Exam Vital Signs: Temp Pulse Resp BP Pulse Ox 97.4 F 62 16 129/73 H 97 12/09/16 07:32 12/09/16 07:53 12/09/16 07:53 12/09/16 07:32 12/09/16 07:53 Intake & Output 12/08/16 12/09/16 12/10/16 06:59 06:59 06:59 Intake Total 830 1600 Balance 830 1600 Weight 77.2 kg 77.2 kg General appearance: PRESENT: no acute distress Eye exam: PRESENT: conjunctiva pink. ABSENT: scleral icterus Mouth exam: PRESENT: moist, tongue midline Neck exam: ABSENT: JVD Respiratory exam: PRESENT: wheezes. ABSENT: rales, rhonchi Cardiovascular exam: PRESENT: RRR. ABSENT: diastolic murmur, rubs, systolic murmur GI/Abdominal exam: PRESENT: normal bowel sounds, soft. ABSENT: distended, guarding, mass, organolmegaly, rebound, tenderness Extremities exam: ABSENT: calf tenderness, clubbing, pedal edema Neurological exam: PRESENT: alert, awake, oriented to person, oriented to place , oriented to time, oriented to situation, CN II-XII grossly intact. ABSENT: motor sensory deficit Psychiatric exam: PRESENT: appropriate affect Skin exam: PRESENT: dry, intact, warm. ABSENT: cyanosis, rash Results Laboratory Results: 12/09/16 05:28 12/09/16 05:28 12/09/16 12/09/16 05:28 05:28 WBC 15.1 H RBC 4.79 Hgb 14.7 Hct 44.1 MCV 92 MCH 30.7 MCHC 33.4 RDW 15.4 H Plt Count 161 Seg Neutrophils % Not Reportable Lymphocytes % Not Reportable Monocytes % Not Reportable Eosinophils % Not Reportable Basophils % Not Reportable Absolute Neutrophils Not Reportable Absolute Lymphocytes Not Reportable Absolute Monocytes Not Reportable Absolute Eosinophils Not Reportable Absolute Basophils Not Reportable Sodium 136.7 L Potassium 4.2 Chloride 106 Carbon Dioxide 26 Anion Gap 5 BUN 21 H Creatinine 1.00 Est GFR ( Amer) > 60 Est GFR (Non-Af Amer) > 60 Glucose 117 H Calcium 8.7 12/05/16 12/05/16 12/05/16 08:47 08:47 14:44 Creatine Kinase 115 109 CK-MB (CK-2) 0.98 Troponin I < 0.012 12/05/16 14:44 Creatine Kinase CK-MB (CK-2) 0.98 Troponin I < 0.012 Impressions: Chest X-Ray 12/05/16 01:46 IMPRESSION: Left basilar pneumonia, atelectasis, and/or scar. Assessment & Plan - Diagnosis (1) COPD exacerbation Is this a current diagnosis for this admission?: YesPlan: The patient still has expiratory wheezes. Will continue with the Solu-Medrol, nebulizers. (2) Hypertension Is this a current diagnosis for this admission?: YesPlan: Blood pressure is under control without medications. We will continue to monitor. - Time Time Spent with patient: 25-34 minutes
[2016-12-09] MEDS: FLUTICASONE NASAL SPRAY 50 MCG/SPRY 120 SPRAY/16 GM NASL SCH ×2 (11:23→21:29)
[2016-12-09] MEDS: LORATADINE 10 MG TABLET PO SCH (11:23)
[2016-12-09] MEDS: PREDNISONE 20 MG TABLET PO SCH (11:23)
[2016-12-09] MEDS: DOCUSATE SODIUM 100 MG CAPSULE PO SCH ×2 (11:23→16:56)
[2016-12-10] MEDS: IPRATROPIUM/ALBUTEROL 0.5-2.5 MG/3 ML AMPUL NEB SCH ×2 (02:20→07:47)
[2016-12-10] MEDS: LEVOFLOXACIN 750 MG TABLET PO SCH (05:20)
[2016-12-10] MEDS: LANSOPRAZOLE 30 MG TAB.RAP.DR PO SCH (05:20)
[2016-12-10] MEDS: HEPARIN SOD (PORCINE) 5,000 UNIT/ML 1 ML SYRINGE SUBCUT SCH (05:22)
[2016-12-10 05:24] LABS: HEMATOCRIT 46.9 % (37.9-51.0); HEMOGLOBIN 15.2 g/dL (13.5-17.0); HGB HCT DIFFERENCE -1.3; MEAN CORPUSCULAR HEMOGLOBIN 30.2 pg (27.0-33.4); MEAN CORPUSCULAR HGB CONC 32.4 g/dL (32.0-36.0); MEAN CORPUSCULAR VOLUME 93 fl (80-97); RED BLOOD COUNT 5.03 10^6/uL (4.35-5.55); RED CELL DISTRIBUTION WIDTH 15.2 % (11.5-14.0); WHITE BLOOD COUNT 15.5 10^3/uL (4.0-10.5)
[2016-12-10 05:42] LABS: ANION GAP 8 (5-19); BLOOD UREA NITROGEN 25 mg/dL (7-20); CALCIUM 8.8 mg/dL (8.4-10.2); CARBON DIOXIDE 25 mmol/L (22-30); CHLORIDE 106 mmol/L (98-107); CREATININE RESULT 1.05 mg/dL (0.52-1.25); GLUCOSE 101 mg/dL (75-110); POTASSIUM 4.4 mmol/L (3.6-5.0); SODIUM 138.7 mmol/L (137-145)
[2016-12-10 06:20] LABS: BASOPHILS % (MANUAL) 0 % (0-2); EOSINOPHILS % (MANUAL) 0 % (0-6); LYMPHOCYTES % (MANUAL) 29 % (13-45); TOTAL CELLS COUNTED 100
[2016-12-10 06:21] LABS: ANISOCYTOSIS SLIGHT; TOXIC GRANULATION SLIGHT; TOXIC VACUOLATION PRESENT
[2016-12-10 06:22] LABS: TARGET CELLS SLIGHT
[2016-12-10 06:23] LABS: PLATELET CLUMPS PRESENT
[2016-12-10] MEDS: PREDNISONE 20 MG TABLET PO SCH (09:49)
[2016-12-10] MEDS: FLUTICASONE NASAL SPRAY 50 MCG/SPRY 120 SPRAY/16 GM NASL SCH (09:49)
[2016-12-10] MEDS: DOCUSATE SODIUM 100 MG CAPSULE PO SCH (09:49)
[2016-12-10] MEDS: LORATADINE 10 MG TABLET PO SCH (09:49)
[2016-12-10 10:40] VITALS: BP 116/67
--- NOTE | 2016-12-10 10:59 | PDOC DISCHARGE SUMMARY ---
General - Admit/Disc Date/PCP Admission Date/Primary Care Provider: 12/05/16 04:15 DUARTE PERAZA MD Discharge Date: 12/10/16 - Discharge Diagnosis (1) COPD exacerbation Is this a current diagnosis for this admission?: Yes (2) Hypertension Is this a current diagnosis for this admission?: Yes (3) Pneumonia Is this a current diagnosis for this admission?: Yes - Additional Information Resuscitation Status: Full Code Discharge Diet: Regular Discharge Activity: Activity As Tolerated Home Medications: Ipratropium/Albuterol Sulfate [Duoneb 3 ml Ampul] 3 ml NEB RTQ6HP PRN #120 vial.neb 12/10/16 Prednisone [Deltasone 20 mg Tablet] 10 mg PO DAILY #39 tablet 12/10/16 History of Present Illness History of Present Illness: KENN JESSICA is a 61 year old male with history of COPD and hypertension who presented with shortness of breath, nonproductive cough and wheezing. The patient was noted to have an acute COPD exacerbation along with pneumonia on chest x-ray. Hospital Course Hospital Course: 61-year-old male with a history of COPD who presented with cough, shortness of breath, wheezing. Patient was found to have a pneumonia as well as acute COPD exacerbation. Patient was started on IV Levaquin and IV Solu-Medrol as well as nebulizers. Patient had improvement in his respiratory status on the day of discharge he had minimal wheezing and no cough. The patient has completed a course of Levaquin for treatment of his pneumonia. He will be sent home on a prednisone taper. His other medical problems were stable during this hospitalization. Physical Exam Vital Signs: Temp Pulse Resp BP Pulse Ox 97.7 F 60 16 139/60 H 96 12/10/16 09:52 12/10/16 09:52 12/10/16 09:52 12/10/16 09:52 12/10/16 09:52 Intake & Output 12/09/16 12/10/16 12/11/16 06:59 06:59 06:59 Intake Total 1600 1810 Balance 1600 1810 Weight 77.2 kg 77.4 kg General appearance: PRESENT: no acute distress Eye exam: PRESENT: conjunctiva pink. ABSENT: scleral icterus Ear exam: PRESENT: normal external ear exam Mouth exam: PRESENT: moist, tongue midline Neck exam: ABSENT: JVD Respiratory exam: PRESENT: wheezes - Few expiratory wheezes in the right base. ABSENT: rales, rhonchi Cardiovascular exam: PRESENT: RRR. ABSENT: diastolic murmur, rubs, systolic murmur GI/Abdominal exam: PRESENT: normal bowel sounds, soft. ABSENT: distended, guarding, mass, organolmegaly, rebound, tenderness Extremities exam: ABSENT: calf tenderness, clubbing, pedal edema Neurological exam: PRESENT: alert, awake, oriented to person, oriented to place , oriented to time, oriented to situation, CN II-XII grossly intact. ABSENT: motor sensory deficit Psychiatric exam: PRESENT: appropriate affect Skin exam: PRESENT: dry, intact, warm. ABSENT: cyanosis, rash Results Laboratory Results: 12/10/16 04:20 12/10/16 04:20 12/10/16 12/10/16 04:20 04:20 WBC 15.5 H RBC 5.03 Hgb 15.2 Hct 46.9 MCV 93 MCH 30.2 MCHC 32.4 RDW 15.2 H Plt Count 170 Seg Neutrophils % Not Reportable Lymphocytes % Not Reportable Monocytes % Not Reportable Eosinophils % Not Reportable Basophils % Not Reportable Absolute Neutrophils Not Reportable Absolute Lymphocytes Not Reportable Absolute Monocytes Not Reportable Absolute Eosinophils Not Reportable Absolute Basophils Not Reportable Sodium 138.7 Potassium 4.4 Chloride 106 Carbon Dioxide 25 Anion Gap 8 BUN 25 H Creatinine 1.05 Est GFR ( Amer) > 60 Est GFR (Non-Af Amer) > 60 Glucose 101 Calcium 8.8 12/05/16 12/05/16 12/05/16 08:47 08:47 14:44 Creatine Kinase 115 109 CK-MB (CK-2) 0.98 Troponin I < 0.012 12/05/16 14:44 Creatine Kinase CK-MB (CK-2) 0.98 Troponin I < 0.012 Impressions: Chest X-Ray 12/05/16 01:46 IMPRESSION: Left basilar pneumonia, atelectasis, and/or scar. Qualifiers PATEINT BEING DISCHARGED WITH ANY OF THE FOLLOWING DIAGNOSIS?: No Plan Discharge Plan: Patient is discharged home in stable condition. Will follow up with primary care doctor in 2 weeks. Time Spent: Greater than 30 Minutes
== END 2016-12-10 13:05 | disposition home or self-care (01) | DRG 190 ==
LOC: ER 01:44 → EDBD 01:44 → EH 04:15 → 4N 06:08
PROVIDERS: ADMIT Internal Medicine; ATTEND Internal Medicine
DX: J44.0 Chronic obstructive pulmonary disease with (acute) lower respiratory infection (principal); J18.9 Pneumonia, unspecified organism; J44.1 Chronic obstructive pulmonary disease with (acute) exacerbation; I10 Essential (primary) hypertension; Z87.891 Personal history of nicotine dependence
CPT/HCPCS: 36415; 71010; 80048; 80053; 81001; 82550; 82553; 82803; 83735; 84484; 85025; 93005; 93010; 94640; 94667; 94668; 96365; 99285; J1644; J1956; J2930; J3475; J7512; J7620

== ENCOUNTER 2017-02-28 06:11 | Inpatient (IN) | payer MEDICARE, MEDICAID ==
[2017-02-28] MEDS ORDERED: MAGNESIUM SULFATE/D5W 1 GM/100 ML RTUPB IV ONE (06:14)
[2017-02-28] MEDS ORDERED: IPRATROPIUM/ALBUTEROL 0.5-2.5 MG/3 ML AMPUL NEB ONE (06:14)
[2017-02-28] MEDS ORDERED: TERBUTALINE SULFATE INJ/PF 1 MG/1 ML SDV IV ONE (06:17)
[2017-02-28] MEDS ORDERED: ALBUTEROL SULFATE 0.083% NEB 2.5 MG/3 ML AMPUL NEB ONE ×2 (06:17→08:06)
[2017-02-28] MEDS ORDERED: NORMAL SALINE 1000 ML 1,000 ML IV ONE (06:17)
[2017-02-28 06:43] LABS: ABSOLUTE BASOPHILS # (AUTO) 0.1 10^3/uL (0.0-0.2); ABSOLUTE EOSINOPHILS # (AUTO) 0.8 10^3/uL (0.0-0.6); ABSOLUTE LYMPHOCYTES (AUTO) 4.4 10^3/uL (0.5-4.7); ABSOLUTE MONOCYTES (AUTO) 1.5 10^3/uL (0.1-1.4); ABSOLUTE NEUT (AUTO) 5.9 10^3/uL (1.7-8.2); EOSINOPHILS % (AUTO) 6.6 % (0-6); LYMPHOCYTES % (AUTO) 34.6 % (13-45); MEAN CORPUSCULAR HEMOGLOBIN 32.1 pg (27.0-33.4); MEAN CORPUSCULAR HGB CONC 34.7 g/dL (32.0-36.0); MEAN CORPUSCULAR VOLUME 93 fl (80-97); MONOCYTES % (AUTO) 11.5 % (3-13); SEGMENTED NEUTROPHILS % (AUTO) 46.3 % (42-78); VENOUS BLOOD BASE EXCESS -3.4 mmol/L; VENOUS BLOOD HCO3 23.5 mmol/L (20-32); VENOUS BLOOD PCO2 48.9 mmHg (35-63); VENOUS BLOOD PH 7.3 (7.30-7.42); WHITE BLOOD COUNT 12.7 10^3/uL (4.0-10.5)
[2017-02-28 06:48] LABS: PROTHROMBIN TIME 16.7 SEC (11.4-15.4)
--- NOTE | 2017-02-28 07:12 | RADIOLOGY REPORT (SQ) ---
EXAM DESCRIPTION: CHEST SINGLE VIEW COMPLETED DATE/TIME: 02/28/2017 6:58 am REASON FOR STUDY: sob COMPARISON: 12/05/2016. EXAM PARAMETERS: NUMBER OF VIEWS: One view. TECHNIQUE: Single frontal radiographic view of the chest acquired. RADIATION DOSE: NA LIMITATIONS: None. FINDINGS: LUNGS AND PLEURA: No opacities, masses or pneumothorax. No pleural effusion. Interval imp roved aeration of the left lung base. MEDIASTINUM AND HILAR STRUCTURES: No masses. Contour normal. HEART AND VASCULAR STRUCTURES: Heart normal in size. Normal vasculature. BONES: No acute findings. HARDWARE: None in the chest. OTHER: No other significant finding. IMPRESSION: NO ACUTE RADIOGRAPHIC FINDING IN THE CHEST. TECHNICAL DOCUMENTATION: JOB ID: [id number]
[2017-02-28 07:18] LABS: CREATINE KINASE MB 1.95 ng/mL (<4.55)
[2017-02-28 07:47] LABS: ALANINE AMINOTRANSFERASE 23 U/L (21-72); ALKALINE PHOSPHATASE 118 U/L (38-126); ANION GAP 8 (5-19); ASPARTATE AMINO TRANSFERASE 32 U/L (17-59); BILIRUBIN,DIRECT 0.4 mg/dL (0.0-0.4); BILIRUBIN,TOTAL 0.6 mg/dL (0.2-1.3); BLOOD UREA NITROGEN 11 mg/dL (7-20); CALCIUM 9.3 mg/dL (8.4-10.2); CARBON DIOXIDE 25 mmol/L (22-30); CHLORIDE 109 mmol/L (98-107); CREATINE KINASE 358 U/L (55-170); CREATININE RESULT 0.96 mg/dL (0.52-1.25); GLUCOSE 118 mg/dL (75-110); MAGNESIUM 2.4 mg/dL (1.6-2.3); POTASSIUM 4.1 mmol/L (3.6-5.0); SODIUM 142.2 mmol/L (137-145); TOTAL PROTEIN 6.7 g/dL (6.3-8.2)
--- NOTE | 2017-02-28 08:08 | ER Document Report ---
ED General - General Chief Complaint: Breathing Difficulty Stated Complaint: DIFFICULTY BREATHING Time Seen by Provider: 02/28/17 06:11 TRAVEL OUTSIDE OF THE [place] IN LAST 30 DAYS: No - HPI Patient complains to provider of: Difficulty breathing Notes: Patient with a history of asthma COPD coming in today for difficulty breathing. Patient states started for the last 24 hours states he has mostly been giving himself a continuous nebulizer treatment while at home with no relief patient was found to be hypoxic upon EMS arrival patient was placed on nonrebreather with a nebulized treatment transport to the ER. Upon arrival patient stating he still does not feel any better as approximately 2-3 word dyspnea. Patient is able to relate he is not having any chest pain abdominal pain nausea vomiting no fevers no chills or productive sputum - Related Data Allergies/Adverse Reactions: No Known Allergies Allergy (Verified 12/05/16 03:23) Home Medications: Current Home Medications Albuterol Sulfate [Ventolin Hfa] 2 puff IH Q4HP PRN 02/28/17 [History] Budesonide/Formoterol Fumarate [Symbicort HFA 160-4.5 mcg Inhaler 6 gm] 2 puff IH Q12 02/28/17 [History] Past Medical History - Social History Smoking Status: Unknown if Ever Smoked Chew tobacco use (# tins/day): - pt smells like cigarette smoke Family History: COPD, Reviewed & Not Pertinent - Past Medical History Cardiac Medical History: Reports: Hx Hypertension Pulmonary Medical History: Reports: Hx Asthma, Hx Bronchitis, Hx COPD Renal/ Medical History: Denies: Hx Peritoneal Dialysis Musculoskeltal Medical History: Reports Hx Arthritis - Immunizations Hx Diphtheria, Pertussis, Tetanus Vaccination: Yes Review of Systems - Review of Systems Constitutional: No symptoms reported EENT: No symptoms reported Cardiovascular: No symptoms reported Respiratory: Cough, Short of breath, Wheezing Gastrointestinal: No symptoms reported Genitourinary: No symptoms reported Male Genitourinary: No symptoms reported Musculoskeletal: No symptoms reported Skin: No symptoms reported Hematologic/Lymphatic: No symptoms reported Neurological/Psychological: No symptoms reported -: Yes All other systems reviewed and negative Physical Exam - Vital signs Vitals: Resp Pulse Ox 21 H 93 02/28/17 06:14 02/28/17 06:14 Interpretation: Normal - General General appearance: Appears well, Alert - HEENT Head: Normocephalic, Atraumatic Eyes: Normal Pupils: PERRL - Respiratory Respiratory status: No respiratory distress, Respiratory distress, Tachypnea Chest status: Nontender Breath sounds: Rhonchi, Wheezing Chest palpation: Normal - Cardiovascular Rhythm: Regular Heart sounds: Normal auscultation Murmur: No - Abdominal Inspection: Normal Distension: No distension Bowel sounds: Normal Tenderness: Nontender Organomegaly: No organomegaly - Back Back: Normal, Nontender - Extremities General upper extremity: Normal inspection, Nontender, Normal color, Normal ROM , Normal temperature General lower extremity: Normal inspection, Nontender, Normal color, Normal ROM , Normal temperature, Normal weight bearing. No: El's sign - Neurological Neuro grossly intact: Yes Cognition: Normal Orientation: AAOx4 Sharda Coma Scale Eye Opening: Spontaneous Sharda Coma Scale Verbal: Oriented Cammal Coma Scale Motor: Obeys Commands Sharda Coma Scale Total: 15 Speech: Normal Motor strength normal: LUE, RUE, LLE, RLE Sensory: Normal - Psychological Associated symptoms: Normal affect, Normal mood - Skin Skin Temperature: Warm Skin Moisture: Dry Skin Color: Normal Course - Re-evaluation Re-evalutation: 02/28/17 13:23 Patient coming in for evaluation difficulty breathing. Patient continues to have difficulty breathing therefore patient was placed on BiPAP. Patient is also stated he started to feel he is being tired. Patient did relate he has a history of being on the ventilator in the past. Otherwise no signs of pneumonia or other critical pathology. EKG and troponin are negative. Discussed with hospitalist will admit the patient for further evaluation. ABG was obtained after patient was admitted. - Vital Signs Vital signs: Temp Pulse Resp BP Pulse Ox 97.9 F 92 28 H 175/89 H 99 02/28/17 11:16 02/28/17 11:39 02/28/17 12:56 02/28/17 11:16 02/28/17 12:56 - Laboratory Result Diagrams: 02/28/17 06:23 02/28/17 07:23 Laboratory results interpreted by me: 02/28/17 02/28/17 02/28/17 06:23 06:23 07:23 WBC 12.7 H RDW 15.0 H Eosinophils % 6.6 H Absolute Monocytes 1.5 H Absolute Eosinophils 0.8 H PT 16.7 H Chloride 109 H Glucose 118 H Magnesium 2.4 H Creatine Kinase 358 H Discharge - Discharge Clinical Impression: COPD exacerbation Respiratory failure with hypoxia Qualifiers: Chronicity: acute Qualified Code(s): J96.01 - Acute respiratory failure with hypoxia Condition: Good Disposition: ADMITTED INPATIENT Admitting Provider: [facility] Admitted: [facility]
[2017-02-28] MEDS ORDERED: LEVALBUTEROL HCL NEB 1.25 MG/3 ML AMPUL NEB PRN (08:53)
[2017-02-28] MEDS ORDERED: NORMAL SALINE 1000 ML 1,000 ML IV PRN (08:53)
[2017-02-28 09:11] LABS: ARTERIAL BLOOD BASE EXCESS -3.2 mmol/L; ARTERIAL BLOOD O2 SATURATION 94.6 % (94-98)
[2017-02-28] MEDS: AZITHROMYCIN 500 MG in DEXTROSE 5%-WATER 250 ML IV SCH (10:49)
[2017-02-28] MEDS: ACETAMINOPHEN 325 MG TABLET PO PRN (10:50)
[2017-02-28] MEDS: ENOXAPARIN SODIUM INJ 40 MG/0.4 ML DISP.SYRIN SUBCUT SCH (10:59)
[2017-02-28] MEDS: IPRATROPIUM/ALBUTEROL 0.5-2.5 MG/3 ML AMPUL NEB SCH ×3 (11:37→20:58)
--- NOTE | 2017-02-28 11:47 | PDOC H&P ---
History of Present Illness Admission Date/PCP: 02/28/17 08:25 History of Present Illness: KENN JESSICA is a 61 year old male with a past medical history of COPD, hypertension, chronic back pain, and a questionable history of a right kidney cancer who presented to the emergency department with shortness of breath. He reports becoming short of breath starting on Saturday. He began using his nebulizer more and over last night he has been using it quite frequently up to 6 or 7 times. He reports today he developed a bit of a dry cough but has not had any fevers, chills, chest pain, night sweats. He denies traveling to or living in epidemic area for tuberculosis. He reports that he has been using his inhaler approximately twice a day since he moved in the last 3 months and waking 3-4 times per week at night to use his inhaler. Patient reports that for his chronic pain that he used to take Percocet and Opana but he quit taking them because he did not like the way they made him feel. Patient is referred to the hospitalist service after receiving terbutaline, multiple nebulized treatments, Solu-Medrol, and magnesium sulfate in the emergency department. Patient was still saturating 87% with oxygen and dipped down to 85% while speaking requiring the initiation of BiPAP. He is referred to hospital service for COPD exacerbation and acute respiratory failure with hypoxia. Past Medical History Cardiac Medical History: Reports: Hypertension Pulmonary Medical History: Reports: Asthma, Bronchitis, Chronic Obstructive Pulmonary Disease (COPD) Malignancy Medical History: Reports: Renal (Kidney) Cancer - Questionable being worked up Musculoskeltal Medical History: Reports: Arthritis Past Surgical History Past Surgical History: Reports: Orthopedic Surgery - foot surgery, hip replacement, rotator cuff Social History Smoking Status: Current Every Day Smoker Cigarettes Packs Per Day: 0.3 Number of Years Smokin Frequency of Alcohol Use: None Hx Recreational Drug Use: Yes - occasional - once a year Drugs: Marijuana Hx Prescription Drug Abuse: No - Advance Directive Resuscitation Status: Full Code Surrogate healthcare decision maker:: Daughter Ms. Warren Family History Family History: CAD, COPD Parental Family History Reviewed: Yes Children Family History Reviewed: Yes Sibling(s) Family History Reviewed.: NA Medication/Allergy Home Medications: Albuterol Sulfate [Ventolin Hfa] 2 puff IH Q4HP PRN 02/28/17 Budesonide/Formoterol Fumarate [Symbicort HFA 160-4.5 mcg Inhaler 6 gm] 2 puff IH Q12 02/28/17 Allergies/Adverse Reactions: No Known Allergies Allergy (Verified 12/05/16 03:23) Review of Systems Constitutional: ABSENT: chills, fever(s), headache(s), night sweats, weakness, weight gain, weight loss Eyes: ABSENT: visual disturbances Ears: ABSENT: hearing changes Nose, Mouth, and Throat: ABSENT: sore throat Cardiovascular: ABSENT: chest pain, dyspnea on exertion, edema, orthropnea, palpitations Respiratory: PRESENT: dyspnea. ABSENT: cough, hemoptysis, sputum Gastrointestinal: ABSENT: abdominal pain, constipation, diarrhea, heartburn, hematemesis, hematochezia, melena, nausea, vomiting Genitourinary: ABSENT: dysuria, hematuria Musculoskeletal: ABSENT: joint swelling Integumentary: ABSENT: rash, wounds Neurological: ABSENT: abnormal gait, abnormal speech, confusion, dizziness, focal weakness, syncope Psychiatric: ABSENT: anxiety, depression, homidical ideation, suicidal ideation Endocrine: ABSENT: cold intolerance, heat intolerance, polydipsia, polyuria Hematologic/Lymphatic: ABSENT: easy bleeding, easy bruising Allergic/Immunologic: ABSENT: seasonal rhinorrhea Physical Exam Vital Signs: Temp Pulse Resp BP Pulse Ox 18 117/77 96 02/28/17 08:13 02/28/17 08:13 02/28/17 08:13 General appearance: PRESENT: mild distress, well-developed, well-nourished Head exam: PRESENT: atraumatic, normocephalic Eye exam: PRESENT: conjunctiva pink, EOMI, PERRLA. ABSENT: scleral icterus Ear exam: PRESENT: normal external ear exam Mouth exam: PRESENT: dry mucosa, tongue midline Neck exam: ABSENT: JVD, lymphadenopathy, thyromegaly, tracheal deviation Respiratory exam: PRESENT: accessory muscle use, chest wall tenderness, clear to auscultation jonathan, prolonged expiratory phas, symmetrical, tachypnea, unlabored. ABSENT: rales, rhonchi, wheezes Cardiovascular exam: PRESENT: RRR, +S1, +S2. ABSENT: diastolic murmur, gallop, rubs, systolic murmur Pulses: PRESENT: normal dorsalis pedis pul Vascular exam: PRESENT: normal capillary refill GI/Abdominal exam: PRESENT: normal bowel sounds, soft. ABSENT: distended, firm , guarding, mass, Gonzalez's sign, organolmegaly, rebound, rigid, tenderness Rectal exam: PRESENT: deferred Extremities exam: PRESENT: full ROM. ABSENT: calf tenderness, clubbing, pedal edema Neurological exam: PRESENT: alert, awake, oriented to person, oriented to place , oriented to time, oriented to situation, CN II-XII grossly intact. ABSENT: motor sensory deficit Psychiatric exam: PRESENT: appropriate affect, normal mood. ABSENT: homicidal ideation, suicidal ideation Skin exam: PRESENT: dry, intact, warm. ABSENT: cyanosis, rash Results Laboratory Results: 02/28/17 02/28/17 02/28/17 06:23 06:23 06:23 WBC 12.7 H Hgb 17.0 Hct 49.0 Plt Count 226 INR 1.27 VBG pH VBG pCO2 VBG HCO3 Sodium Potassium Chloride Carbon Dioxide Anion Gap BUN Creatinine Glucose Calcium Magnesium Total Bilirubin Direct Bilirubin ALT Alkaline Phosphatase Creatine Kinase CK-MB (CK-2) 1.95 Troponin I NT-Pro-B Natriuret Pep 68 Total Protein Albumin 02/28/17 02/28/17 02/28/17 06:23 07:23 07:23 WBC Hgb Hct Plt Count INR VBG pH 7.30 VBG pCO2 48.9 VBG HCO3 23.5 Sodium 142.2 Potassium 4.1 Chloride 109 H Carbon Dioxide 25 Anion Gap 8 BUN 11 Creatinine 0.96 Glucose 118 H Calcium 9.3 Magnesium 2.4 H Total Bilirubin 0.6 Direct Bilirubin 0.4 ALT 23 Alkaline Phosphatase 118 Creatine Kinase 358 H CK-MB (CK-2) Troponin I < 0.012 NT-Pro-B Natriuret Pep Total Protein 6.7 Albumin 4.0 Impressions: Chest X-Ray 02/28/17 06:12 IMPRESSION: NO ACUTE RADIOGRAPHIC FINDING IN THE CHEST. Status: Imported from PACS Assessment & Plan - Diagnosis (1) COPD exacerbation Is this a current diagnosis for this admission?: Yes Plan: Place patient on IMCU. BiPAP as needed. Obtain a VQ scan. I did request that this patient consent to a new IV and a CT angiogram to rule out PE as he is quite acutely hypoxic, but patient refused new IV. Solu-Medrol 125 mg IV q. 8. Scheduled nebulized treatments and as needed Xopenex. Aggressive pulmonary toileting and will add azithromycin as he does have a mild white count. (2) Respiratory failure with hypoxia Qualifiers: Chronicity: acute Qualified Code(s): J96.01 - Acute respiratory failure with hypoxia Is this a current diagnosis for this admission?: Yes Plan: Continue patient with BiPAP pending ABG. Oxygen to maintain saturation greater than 93%. (3) Hypertension Qualifiers: Hypertension type: essential hypertension Qualified Code(s): I10 - Essential (primary) hypertension Is this a current diagnosis for this admission?: Yes Plan: Suspect patient has underlying hypertension. He reports he takes no other medications other than Symbicort and albuterol. (4) Tobacco abuse Is this a current diagnosis for this admission?: Yes Plan: Patient is advised to stop smoking. He has been offered nicotine replacement. - Time Time Spent: 30 to 50 Minutes Medications reviewed and adjusted accordingly: Yes Anticipated discharge: Home Within: within 48 hours - Inpatient Certification Based on my medical assessment, after consideration of the patient's comorbidities, presenting symptoms, or acuity I expect that the services needed warrant INPATIENT care.: Yes I certify that my determination is in accordance with my understanding of Medicare's requirements for reasonable and necessary INPATIENT services [42 CFR 412.3e].: Yes Medical Necessity: Need For IV Fluids, Need for Nebulizer Therapy and Monitoring of Response, Need for IV Antibiotics 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
[2017-02-28] MEDS: METHYLPREDNISOLONE INJ 125 MG/2 ML SDV IV SCH ×2 (14:25→22:17)
--- NOTE | 2017-02-28 14:42 | RADIOLOGY REPORT (SQ) ---
EXAM DESCRIPTION: NM LUNG VENT/PERF SCAN COMPLETED DATE/TIME: 02/28/2017 2:08 pm REASON FOR STUDY: hypoxia COMPARISON: 02/28/2017, 12/05/2016 chest x-rays RADIONUCLIDE AND DOSE: 5.3 millicuries TC-99m MAA Intravenous 30.3 millicuries TC-99m DTPA Inhaled aerosol TECHNIQUE: AP and PA views of the lungs acquired post ventilation of DTPA aerosol. Eight matching v iews of the lungs acquired following injection of MAA. LIMITATIONS: None. FINDINGS: VENTILATION: Limited ventilation imaging, there is clumping of the DTPA in the central air ways. Decreased activity over the lateral half of the right lung and left upper lobe, correlates hyp erinflation on chest films from obstructive lung disease. PERFUSION: Perfusion images with normal homogenous activity and no wedge-shaped or segmental defects. No ventilation-perfusion mismatches. OTHER: No other significant finding. IMPRESSION: No scintigraphic evidence of acute pulmonary emboli. Ventilation scan shows significant areas of decreased activity from obstructive lung disease TECHNICAL DOCUMENTATION: JOB ID: [id number] [email or web address]- All Rights Reserved
--- NOTE | 2017-02-28 15:36 | EKG REPORT ---
SEVERITY:- NORMAL ECG - SINUS RHYTHM : Confirmed by: Mook Samano 28-Feb-2017 15:35:33
[2017-02-28] MEDS ORDERED: HYDRALAZINE HCL INJ/PF 20 MG/1 ML SDV IV PRN (19:51)
[2017-02-28] MEDS: LORATADINE 10 MG TABLET PO SCH (22:15)
[2017-02-28] MEDS: MONTELUKAST SODIUM 10 MG TABLET PO SCH (22:16)
[2017-02-28] MEDS: BUDESONIDE/FORMOTEROL 160-4.5 MCG 60 PUFF/6 GM MDI IH SCH (23:28)
[2017-03-01] MEDS: ACETAMINOPHEN 325 MG TABLET PO PRN (01:00)
[2017-03-01] MEDS: METHYLPREDNISOLONE INJ 125 MG/2 ML SDV IV SCH (06:04)
[2017-03-01 07:36] LABS: ABSOLUTE BASOPHILS # (AUTO) 0.1 10^3/uL (0.0-0.2); ABSOLUTE LYMPHOCYTES (AUTO) 1.2 10^3/uL (0.5-4.7); ABSOLUTE MONOCYTES (AUTO) 0.5 10^3/uL (0.1-1.4); ABSOLUTE NEUT (AUTO) 14.9 10^3/uL (1.7-8.2); BASOPHILS % (AUTO) 0.3 % (0-2); HEMATOCRIT 43.6 % (37.9-51.0); HGB HCT DIFFERENCE 1.4; LYMPHOCYTES % (AUTO) 7.5 % (13-45); MEAN CORPUSCULAR HEMOGLOBIN 31.9 pg (27.0-33.4); MEAN CORPUSCULAR HGB CONC 34.4 g/dL (32.0-36.0); MEAN CORPUSCULAR VOLUME 93 fl (80-97); MONOCYTES % (AUTO) 2.8 % (3-13); RED CELL DISTRIBUTION WIDTH 14.8 % (11.5-14.0); SEGMENTED NEUTROPHILS % (AUTO) 89.4 % (42-78); WHITE BLOOD COUNT 16.7 10^3/uL (4.0-10.5)
[2017-03-01 08:05] LABS: ANION GAP 9 (5-19); BLOOD UREA NITROGEN 16 mg/dL (7-20); CALCIUM 9.7 mg/dL (8.4-10.2); CARBON DIOXIDE 19 mmol/L (22-30); CHLORIDE 111 mmol/L (98-107); CREATININE RESULT 0.85 mg/dL (0.52-1.25); GLUCOSE 146 mg/dL (75-110); POTASSIUM 4.8 mmol/L (3.6-5.0); SODIUM 139.1 mmol/L (137-145)
[2017-03-01] MEDS: IPRATROPIUM/ALBUTEROL 0.5-2.5 MG/3 ML AMPUL NEB SCH ×4 (08:12→20:25)
[2017-03-01] MEDS: BUDESONIDE/FORMOTEROL 160-4.5 MCG 60 PUFF/6 GM MDI IH SCH ×2 (09:05→21:47)
[2017-03-01] MEDS: ENOXAPARIN SODIUM INJ 40 MG/0.4 ML DISP.SYRIN SUBCUT SCH (09:05)
[2017-03-01] MEDS: AZITHROMYCIN 500 MG in DEXTROSE 5%-WATER 250 ML IV SCH (09:06)
[2017-03-01] MEDS ORDERED: AZITHROMYCIN 250 MG TABLET PO ONE ×2 (10:00→10:45)
[2017-03-01] MEDS ORDERED: AZITHROMYCIN 250 MG TABLET PO SCH (10:00)
[2017-03-01] MEDS ORDERED: PREDNISONE 20 MG TABLET PO ONE (10:09)
[2017-03-01] MEDS ORDERED: TRAMADOL HCL 50 MG TABLET PO PRN (10:10)
[2017-03-01] MEDS: ALPRAZOLAM 0.25 MG TABLET PO PRN ×2 (10:31→23:11)
--- NOTE | 2017-03-01 15:15 | PDOC PROGRESS REPORT ---
Subjective Progress Note for:: 03/01/17 Subjective:: Patient reports that he feels his shortness of breath has improved. He complains of anxiety. Patient requests Xanax. Patient is offered other pharmacologic intervention but refuses this. He reports that he "knows his body ". He reports that he has quit smoking for over a year. Patient denies chest pain, abdominal pain, nausea, vomiting, fevers, chills, diarrhea, constipation, headache, new onset weakness. Physical Exam Vital Signs: Temp Pulse Resp BP Pulse Ox 97.9 F 73 19 135/51 H 96 03/01/17 03:09 03/01/17 03:09 03/01/17 03:09 03/01/17 03:09 03/01/17 03:09 Intake & Output 02/28/17 03/01/17 03/02/17 06:59 06:59 06:59 Intake Total 2655 Output Total 1825 Balance 830 Weight 97 kg Exam: General: Awake alert and oriented x3, mild tachypnea HEENT: AT/NC, PERRL, EOMI, oropharynx is moist, pink, no scleral icterus, no conjunctival injection Neck: No JVD, trachea midline Chest: light end expiratory wheezing CV: Regular rate and rhythm, normal S1 and S2, no murmur, rub, or gallop Abdomen: Soft, nontender to palpation, nondistended, active bowel sounds; no rebound, rigidity, or guarding Extremities: No cyanosis, clubbing or edema Neuro: Cranial nerves II through XII are grossly intact without focal deficits; awake alert and oriented x3 Psych: anxious Results Laboratory Results: 02/28/17 08:57 Carbonic Acid 1.02 L HCO3/H2CO3 Ratio 20:1 ABG pH 7.40 ABG pCO2 33.9 L ABG pO2 71.7 L ABG HCO3 20.6 ABG O2 Saturation 94.6 ABG Base Excess -3.2 FiO2 40% 02/28/17 02/28/17 03/01/17 14:16 19:25 01:20 Troponin I < 0.012 < 0.012 < 0.012 Impressions: Lung Scan-VQ NM 02/28/17 00:00 IMPRESSION: No scintigraphic evidence of acute pulmonary emboli. Ventilation scan shows significant areas of decreased activity from obstructive lung disease Chest X-Ray 02/28/17 06:12 IMPRESSION: NO ACUTE RADIOGRAPHIC FINDING IN THE CHEST. Assessment & Plan - Diagnosis (1) COPD exacerbation Is this a current diagnosis for this admission?: Yes Plan: Patient is much improved. Transition patient to oral prednisone Stop IV fluids and transition to oral azithromycin If doing well tomorrow can be discharged home. (2) Respiratory failure with hypoxia Qualifiers: Chronicity: acute Qualified Code(s): J96.01 - Acute respiratory failure with hypoxia Is this a current diagnosis for this admission?: Yes Plan: VQ negative. Oxygen to maintain saturation greater than 93%. (3) Hypertension Qualifiers: Hypertension type: essential hypertension Qualified Code(s): I10 - Essential (primary) hypertension Is this a current diagnosis for this admission?: Yes Plan: Suspect patient has underlying hypertension. He reports he takes no other medications other than Symbicort and albuterol. (4) Anxiety Is this a current diagnosis for this admission?: Yes Plan: xanax at low dose - Time Time Spent with patient: 25-34 minutes Medications reviewed and adjusted accordingly: Yes Anticipated discharge: Home Within: within 24 hours - Inpatient Certification Based on my medical assessment, after consideration of the patient's comorbidities, presenting symptoms, or acuity I expect that the services needed warrant INPATIENT care.: Yes I certify that my determination is in accordance with my understanding of Medicare's requirements for reasonable and necessary INPATIENT services [42 CFR 412.3e].: Yes Medical Necessity: Need for Nebulizer Therapy and Monitoring of Response 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
[2017-03-01] MEDS: PREDNISONE 20 MG TABLET PO SCH (17:03)
[2017-03-01] MEDS: LORATADINE 10 MG TABLET PO SCH (21:47)
[2017-03-01] MEDS: MONTELUKAST SODIUM 10 MG TABLET PO SCH (21:47)
[2017-03-02] MEDS: GUAIFENESIN SYRP 200 MG/10 ML UDC PO PRN ×3 (01:01→22:12)
[2017-03-02] MEDS: IPRATROPIUM/ALBUTEROL 0.5-2.5 MG/3 ML AMPUL NEB SCH ×4 (07:46→19:46)
[2017-03-02] MEDS: ENOXAPARIN SODIUM INJ 40 MG/0.4 ML DISP.SYRIN SUBCUT SCH (08:59)
[2017-03-02] MEDS: PREDNISONE 20 MG TABLET PO SCH (09:00)
[2017-03-02] MEDS: AZITHROMYCIN 250 MG TABLET PO SCH (09:00)
[2017-03-02] MEDS: BUDESONIDE/FORMOTEROL 160-4.5 MCG 60 PUFF/6 GM MDI IH SCH ×2 (09:01→22:14)
[2017-03-02] MEDS ORDERED: BENZONATATE 100 MG CAPSULE PO ONE (10:00)
[2017-03-02] MEDS: BENZONATATE 100 MG CAPSULE PO SCH ×2 (13:53→22:08)
[2017-03-02] MEDS: METHYLPREDNISOLONE INJ 125 MG/2 ML SDV IV SCH ×2 (13:53→22:08)
[2017-03-02] MEDS: ACETAMINOPHEN 325 MG TABLET PO PRN (13:57)
[2017-03-02] MEDS ORDERED: METHYLPREDNISOLONE INJ 40 MG/1 ML SDV IV SCH (14:00)
--- NOTE | 2017-03-02 14:39 | PDOC PROGRESS REPORT ---
Subjective Progress Note for:: 03/02/17 Subjective:: Patient reports that he feels his shortness of breath is worse and he is far from baseline and that he coughed all night. Reports cough productive of green sputum. Patient denies chest pain, abdominal pain, nausea, vomiting, fevers, chills, diarrhea, constipation, headache, new onset weakness. Physical Exam Vital Signs: Temp Pulse Resp BP Pulse Ox 97.7 F 61 16 135/70 H 97 03/02/17 11:04 03/02/17 14:00 03/02/17 12:10 03/02/17 11:04 03/02/17 12:10 Intake & Output 03/01/17 03/02/17 03/03/17 06:59 06:59 06:59 Intake Total 4499 1160 480 Output Total 1825 1500 350 Balance 2674 -340 130 Weight 97 kg 97.8 kg Exam: General: Awake alert and oriented x3, NAD HEENT: AT/NC, PERRL, EOMI, oropharynx is moist, pink, no scleral icterus, no conjunctival injection Neck: No JVD, trachea midline Chest: bilateral inpiratory and end expiratory wheezing CV: Regular rate and rhythm, normal S1 and S2, no murmur, rub, or gallop Abdomen: Soft, nontender to palpation, nondistended, active bowel sounds; no rebound, rigidity, or guarding Extremities: No cyanosis, clubbing or edema Neuro: Cranial nerves II through XII are grossly intact without focal deficits; awake alert and oriented x3 Psych: normal mood and affect Results Laboratory Results: 03/01/17 07:13 03/01/17 07:13 02/28/17 02/28/17 03/01/17 14:16 19:25 01:20 Troponin I < 0.012 < 0.012 < 0.012 Impressions: Lung Scan-VQ NM 02/28/17 00:00 IMPRESSION: No scintigraphic evidence of acute pulmonary emboli. Ventilation scan shows significant areas of decreased activity from obstructive lung disease Chest X-Ray 02/28/17 06:12 IMPRESSION: NO ACUTE RADIOGRAPHIC FINDING IN THE CHEST. Assessment & Plan - Diagnosis (1) COPD exacerbation Is this a current diagnosis for this admission?: Yes Plan: Have stopped oral prednisone and converted patient back to IV Solu-Medrol. Patient's wheezing was quite profound. Pending sputum culture. Patient currently on azithromycin. No current fevers. (2) Respiratory failure with hypoxia Qualifiers: Chronicity: acute Qualified Code(s): J96.01 - Acute respiratory failure with hypoxia Is this a current diagnosis for this admission?: Yes Plan: VQ negative. Oxygen to maintain saturation greater than 93%. Wean oxygen as tolerated (3) Hypertension Qualifiers: Hypertension type: essential hypertension Qualified Code(s): I10 - Essential (primary) hypertension Is this a current diagnosis for this admission?: Yes Plan: Suspect patient has underlying hypertension. He reports he takes no other medications other than Symbicort and albuterol. (4) Anxiety Is this a current diagnosis for this admission?: Yes Plan: xanax 0.25mg po q6hp - Time Time Spent with patient: 25-34 minutes Medications reviewed and adjusted accordingly: Yes Anticipated discharge: Home Within: within 48 hours
[2017-03-02] MEDS: LORATADINE 10 MG TABLET PO SCH (22:07)
[2017-03-02] MEDS: MONTELUKAST SODIUM 10 MG TABLET PO SCH (22:07)
[2017-03-02] MEDS: ALPRAZOLAM 0.25 MG TABLET PO PRN (22:07)
[2017-03-03] MEDS: BENZONATATE 100 MG CAPSULE PO SCH ×3 (05:54→21:31)
[2017-03-03] MEDS: METHYLPREDNISOLONE INJ 125 MG/2 ML SDV IV SCH ×4 (05:55→23:43)
[2017-03-03] MEDS: IPRATROPIUM/ALBUTEROL 0.5-2.5 MG/3 ML AMPUL NEB SCH ×4 (07:32→20:12)
[2017-03-03] MEDS: ENOXAPARIN SODIUM INJ 40 MG/0.4 ML DISP.SYRIN SUBCUT SCH (09:17)
[2017-03-03] MEDS: AZITHROMYCIN 250 MG TABLET PO SCH (09:18)
[2017-03-03] MEDS: BUDESONIDE/FORMOTEROL 160-4.5 MCG 60 PUFF/6 GM MDI IH SCH ×2 (09:19→21:31)
[2017-03-03] MEDS ORDERED: METHYLPREDNISOLONE INJ 125 MG/2 ML SDV IV ONE (09:45)
[2017-03-03] MEDS ORDERED: PIPERACILLIN SODIUM/TAZOBACTAM 4.5 GM in NORMAL SALINE 100 ML IV ONE (13:00)
--- NOTE | 2017-03-03 14:36 | PDOC PROGRESS REPORT ---
Subjective Progress Note for:: 03/03/17 Subjective:: Patient reports that he feels his shortness of breath is stable, but he is far from baseline. Patient reports associated chest pain from coughing. Reports cough productive of green sputum. C/o fatigue and general malaise. Patient denies chest pain, abdominal pain, nausea, vomiting, fevers, chills, diarrhea, constipation, headache, new onset weakness. Physical Exam Vital Signs: Temp Pulse Resp BP Pulse Ox 97.6 F 81 16 128/81 H 100 03/03/17 07:49 03/03/17 11:49 03/03/17 11:49 03/03/17 07:49 03/03/17 11:49 Intake & Output 03/02/17 03/03/17 03/04/17 06:59 06:59 06:59 Intake Total 1160 2672 Output Total 1500 850 Balance -340 1822 Weight 97.8 kg 98.2 kg Exam: General: Awake alert and oriented x3, NAD HEENT: AT/NC, PERRL, EOMI, oropharynx is moist, pink, no scleral icterus, no conjunctival injection Neck: No JVD, trachea midline Chest: bilateral inpiratory and end expiratory wheezing, occasional rhonchi CV: Regular rate and rhythm, normal S1 and S2, no murmur, rub, or gallop Abdomen: Soft, nontender to palpation, nondistended, active bowel sounds; no rebound, rigidity, or guarding Extremities: No cyanosis, clubbing or edema Neuro: Cranial nerves II through XII are grossly intact without focal deficits; awake alert and oriented x3 Psych: normal mood and affect Results Laboratory Results: 03/01/17 07:13 03/01/17 07:13 02/28/17 02/28/17 03/01/17 14:16 19:25 01:20 Troponin I < 0.012 < 0.012 < 0.012 Impressions: Lung Scan-VQ NM 02/28/17 00:00 IMPRESSION: No scintigraphic evidence of acute pulmonary emboli. Ventilation scan shows significant areas of decreased activity from obstructive lung disease Chest X-Ray 02/28/17 06:12 IMPRESSION: NO ACUTE RADIOGRAPHIC FINDING IN THE CHEST. Assessment & Plan - Diagnosis (1) COPD exacerbation Is this a current diagnosis for this admission?: Yes Plan: Patient failed initial transition to oral prednisone Give 125mg IV solumedrol now and increase frequency to q6 continue scheduled treatments (2) Pneumonia Qualifiers: Pneumonia type: due to unspecified organism Laterality: unspecified laterality Lung location: unspecified part of lung Qualified Code(s): J18.9 - Pneumonia, unspecified organism Is this a current diagnosis for this admission?: Yes Plan: Repeat CXR Concern for pneumonia as patient is growing now, 2 different gram negative rods in his sputum transition to zosyn and continue pulmonary toileting and scheduled nebulized treatments (3) Respiratory failure with hypoxia Qualifiers: Chronicity: acute Qualified Code(s): J96.01 - Acute respiratory failure with hypoxia Is this a current diagnosis for this admission?: Yes Plan: Improved off oxygen keep sat 93% or better (4) Hypertension Qualifiers: Hypertension type: essential hypertension Qualified Code(s): I10 - Essential (primary) hypertension Is this a current diagnosis for this admission?: Yes (5) Anxiety Is this a current diagnosis for this admission?: Yes Plan: controlled with xanax 0.25mg po q6hp - Time Time Spent with patient: 25-34 minutes Medications reviewed and adjusted accordingly: Yes
[2017-03-03] MEDS: PIPERACILLIN SODIUM/TAZOBACTAM 4.5 GM in NORMAL SALINE 100 ML IV SCH ×2 (18:08→23:43)
[2017-03-03] MEDS: LORATADINE 10 MG TABLET PO SCH (21:31)
[2017-03-03] MEDS: MONTELUKAST SODIUM 10 MG TABLET PO SCH (21:31)
[2017-03-03] MEDS: ALPRAZOLAM 0.25 MG TABLET PO PRN (21:36)
[2017-03-04] MEDS: BENZONATATE 100 MG CAPSULE PO SCH ×3 (06:47→22:19)
[2017-03-04] MEDS: METHYLPREDNISOLONE INJ 125 MG/2 ML SDV IV SCH ×3 (06:48→17:51)
[2017-03-04] MEDS: PIPERACILLIN SODIUM/TAZOBACTAM 4.5 GM in NORMAL SALINE 100 ML IV SCH ×4 (06:48→23:33)
[2017-03-04] MEDS: IPRATROPIUM/ALBUTEROL 0.5-2.5 MG/3 ML AMPUL NEB SCH ×4 (08:26→19:41)
[2017-03-04 08:43] LABS: HEMATOCRIT 44.5 % (37.9-51.0); HEMOGLOBIN 14.8 g/dL (13.5-17.0); HGB HCT DIFFERENCE -0.1; MEAN CORPUSCULAR HEMOGLOBIN 31.3 pg (27.0-33.4); MEAN CORPUSCULAR HGB CONC 33.3 g/dL (32.0-36.0); MEAN CORPUSCULAR VOLUME 94 fl (80-97); RED BLOOD COUNT 4.73 10^6/uL (4.35-5.55); RED CELL DISTRIBUTION WIDTH 14.9 % (11.5-14.0); WHITE BLOOD COUNT 16.4 10^3/uL (4.0-10.5)
[2017-03-04 08:57] LABS: ANION GAP 12 (5-19); CARBON DIOXIDE 21 mmol/L (22-30); CHLORIDE 106 mmol/L (98-107); GLUCOSE 158 mg/dL (75-110); POTASSIUM 4.2 mmol/L (3.6-5.0); SODIUM 139.3 mmol/L (137-145)
[2017-03-04 08:58] LABS: BLOOD UREA NITROGEN 23 mg/dL (7-20); CALCIUM 9.2 mg/dL (8.4-10.2); CREATININE RESULT 0.96 mg/dL (0.52-1.25)
[2017-03-04 09:22] LABS: ANISOCYTOSIS SLIGHT; BASOPHILS % (MANUAL) 0 % (0-2); EOSINOPHILS % (MANUAL) 0 % (0-6); LYMPHOCYTES % (MANUAL) 10 % (13-45); OVALOCYTES SLIGHT; POIKILOCYTOSIS SLIGHT; SCHISTOCYTES SLIGHT; TOTAL CELLS COUNTED 100
[2017-03-04] MEDS: ALPRAZOLAM 0.25 MG TABLET PO PRN ×2 (09:38→22:19)
--- NOTE | 2017-03-04 09:43 | RADIOLOGY REPORT (SQ) ---
EXAM DESCRIPTION: CHEST PA/LAT COMPLETED DATE/TIME: 03/04/2017 9:30 am REASON FOR STUDY: ?pna COMPARISON: 02/28/2017 EXAM PARAMETERS: NUMBER OF VIEWS: two views TECHNIQUE: Digital Frontal and Lateral radiographic views of the chest acquired. RADIATION DOSE: NA LIMITATIONS: none FINDINGS: LUNGS AND PLEURA: New patchy right lower lobe airspace disease. Lungs and pleural spaces otherwise clear. MEDIASTINUM AND HILAR STRUCTURES: No masses or contour abnormalities. HEART AND VASCULAR STRUCTURES: Heart normal size. No evidence for failure. BONES: No acute findings. HARDWARE: None in the chest. OTHER: Stable retained metallic foreign body left chest wall. IMPRESSION: NEW PATCHY RIGHT LOWER LOBE AIRSPACE DISEASE MAY REPRESENT DEVELOPING PNEUMONIA. TECHNICAL DOCUMENTATION: JOB ID: [id number] [employer]- All Rights Reserved
[2017-03-04] MEDS: BUDESONIDE/FORMOTEROL 160-4.5 MCG 60 PUFF/6 GM MDI IH SCH ×2 (10:03→22:20)
[2017-03-04] MEDS: ENOXAPARIN SODIUM INJ 40 MG/0.4 ML DISP.SYRIN SUBCUT SCH (10:05)
[2017-03-04] MEDS: GUAIFENESIN SYRP 200 MG/10 ML UDC PO PRN (10:32)
[2017-03-04] MEDS: OXYCODONE-ACETAMINOPHEN 5-325 MG TABLET PO PRN ×2 (12:13→20:14)
--- NOTE | 2017-03-04 14:03 | PDOC PROGRESS REPORT ---
Subjective Progress Note for:: 03/04/17 Subjective:: Patient is now growing 2 different gram negative rods from his sputum cul Patient reports that he feels his shortness of breath is stable, but he is still far from baseline. Patient reports associated chest pain from coughing. Reports cough productive of green sputum. C/o fatigue and general malaise. Patient denies chest pain, abdominal pain, nausea, vomiting, fevers, chills, diarrhea, constipation, headache, new onset weakness. Physical Exam Vital Signs: Temp Pulse Resp BP Pulse Ox 97.3 F 61 18 133/59 H 98 03/04/17 08:39 03/04/17 08:39 03/04/17 08:39 03/04/17 08:39 03/04/17 08:39 Intake & Output 03/03/17 03/04/17 03/05/17 06:59 06:59 06:59 Intake Total 2672 2204 Output Total 850 1125 Balance 1822 1079 Weight 98.2 kg 99.4 kg Exam: General: Awake alert and oriented x3, NAD HEENT: AT/NC, PERRL, EOMI, oropharynx is moist, pink, no scleral icterus, no conjunctival injection Neck: No JVD, trachea midline Chest: Wheezes and rhonchi RLL CV: Regular rate and rhythm, normal S1 and S2, no murmur, rub, or gallop Abdomen: Soft, nontender to palpation, nondistended, active bowel sounds; no rebound, rigidity, or guarding Extremities: No cyanosis, clubbing or edema Neuro: Cranial nerves II through XII are grossly intact without focal deficits; awake alert and oriented x3 Psych: normal mood and affect Results Laboratory Results: 03/04/17 07:55 03/04/17 07:55 03/04/17 03/04/17 07:55 07:55 WBC 16.4 H RBC 4.73 Hgb 14.8 Hct 44.5 MCV 94 MCH 31.3 MCHC 33.3 RDW 14.9 H Plt Count 189 Seg Neutrophils % Not Reportable Lymphocytes % Not Reportable Monocytes % Not Reportable Eosinophils % Not Reportable Basophils % Not Reportable Absolute Neutrophils Not Reportable Absolute Lymphocytes Not Reportable Absolute Monocytes Not Reportable Absolute Eosinophils Not Reportable Absolute Basophils Not Reportable Sodium 139.3 Potassium 4.2 Chloride 106 Carbon Dioxide 21 L Anion Gap 12 BUN 23 H Creatinine 0.96 Est GFR ( Amer) > 60 Est GFR (Non-Af Amer) > 60 Glucose 158 H Calcium 9.2 02/28/17 02/28/17 03/01/17 14:16 19:25 01:20 Troponin I < 0.012 < 0.012 < 0.012 Impressions: Lung Scan-VQ NM 02/28/17 00:00 IMPRESSION: No scintigraphic evidence of acute pulmonary emboli. Ventilation scan shows significant areas of decreased activity from obstructive lung disease Chest X-Ray 03/04/17 00:00 IMPRESSION: NEW PATCHY RIGHT LOWER LOBE AIRSPACE DISEASE MAY REPRESENT DEVELOPING PNEUMONIA. Assessment & Plan - Diagnosis (1) COPD exacerbation Is this a current diagnosis for this admission?: Yes Plan: Patient failed initial transition to oral prednisone Continue IV solumedrol and decrease to q8h continue scheduled treatments (2) Pneumonia Qualifiers: Pneumonia type: due to unspecified organism Laterality: unspecified laterality Lung location: unspecified part of lung Qualified Code(s): J18.9 - Pneumonia, unspecified organism Is this a current diagnosis for this admission?: Yes Plan: Repeat CXR reveals right lower lobe pneumonia likely consistent with aspiration Patient is growing now, 2 different gram negative rods in his sputum On zosyn day#2 and continue pulmonary toileting and scheduled nebulized treatments Continues to require IV antibiotics and IV Solu-Medrol warranting ongoing admission. (3) Respiratory failure with hypoxia Qualifiers: Chronicity: acute Qualified Code(s): J96.01 - Acute respiratory failure with hypoxia Is this a current diagnosis for this admission?: Yes Plan: Improved off oxygen keep sat 93% or better (4) Hypertension Qualifiers: Hypertension type: essential hypertension Qualified Code(s): I10 - Essential (primary) hypertension Is this a current diagnosis for this admission?: Yes (5) Anxiety Is this a current diagnosis for this admission?: Yes Plan: controlled with xanax 0.25mg po q6hp (6) GERD (gastroesophageal reflux disease) Qualifiers: Esophagitis presence: esophagitis presence not specified Qualified Code(s) : K21.9 - Gastro-esophageal reflux disease without esophagitis Is this a current diagnosis for this admission?: Yes Plan: Place patient on Pepcid twice daily - Time Time Spent with patient: 25-34 minutes Medications reviewed and adjusted accordingly: Yes - Inpatient Certification Based on my medical assessment, after consideration of the patient's comorbidities, presenting symptoms, or acuity I expect that the services needed warrant INPATIENT care.: Yes I certify that my determination is in accordance with my understanding of Medicare's requirements for reasonable and necessary INPATIENT services [42 CFR 412.3e].: Yes Medical Necessity: Need for IV Antibiotics Post Hospital Care: D/C [employer] 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
[2017-03-04] MEDS: FAMOTIDINE 20 MG TABLET PO SCH (22:19)
[2017-03-04] MEDS: MONTELUKAST SODIUM 10 MG TABLET PO SCH (22:20)
[2017-03-04] MEDS: LORATADINE 10 MG TABLET PO SCH (22:21)
[2017-03-05] MEDS: METHYLPREDNISOLONE INJ 125 MG/2 ML SDV IV SCH ×3 (01:18→18:42)
[2017-03-05] MEDS: PIPERACILLIN SODIUM/TAZOBACTAM 4.5 GM in NORMAL SALINE 100 ML IV SCH ×4 (06:32→23:57)
[2017-03-05] MEDS: BENZONATATE 100 MG CAPSULE PO SCH ×3 (06:41→22:05)
[2017-03-05] MEDS: IPRATROPIUM/ALBUTEROL 0.5-2.5 MG/3 ML AMPUL NEB SCH ×4 (07:47→19:37)
[2017-03-05] MEDS: OXYCODONE-ACETAMINOPHEN 5-325 MG TABLET PO PRN ×2 (08:10→19:58)
[2017-03-05] MEDS: ALPRAZOLAM 0.25 MG TABLET PO PRN ×2 (08:45→20:42)
[2017-03-05] MEDS: ENOXAPARIN SODIUM INJ 40 MG/0.4 ML DISP.SYRIN SUBCUT SCH (10:05)
[2017-03-05] MEDS: FAMOTIDINE 20 MG TABLET PO SCH ×2 (10:11→22:05)
[2017-03-05] MEDS: BUDESONIDE/FORMOTEROL 160-4.5 MCG 60 PUFF/6 GM MDI IH SCH ×2 (10:12→22:06)
--- NOTE | 2017-03-05 15:05 | PDOC PROGRESS REPORT ---
Subjective Progress Note for:: 03/05/17 Subjective:: Pt states that she is feeling better today. Physical Exam Vital Signs: Temp Pulse Resp BP Pulse Ox 97.9 F 66 16 132/73 H 98 03/05/17 11:09 03/05/17 12:11 03/05/17 12:11 03/05/17 11:09 03/05/17 12:11 Intake & Output 03/04/17 03/05/17 03/06/17 06:59 06:59 06:59 Intake Total 2204 1766 480 Output Total 1125 1100 225 Balance 1079 666 255 Weight 99.4 kg General appearance: PRESENT: no acute distress, well-developed, well-nourished Head exam: PRESENT: atraumatic Eye exam: PRESENT: conjunctival injection Ear exam: PRESENT: normal external ear exam Mouth exam: PRESENT: dry mucosa Neck exam: ABSENT: carotid bruit, JVD, lymphadenopathy, thyromegaly Respiratory exam: PRESENT: rhonchi, wheezes, other - diffuse wheezing heard in all lung lares, + prolonged exp phase.. ABSENT: rales Cardiovascular exam: PRESENT: RRR. ABSENT: diastolic murmur, rubs, systolic murmur Vascular exam: PRESENT: normal capillary refill GI/Abdominal exam: PRESENT: normal bowel sounds, soft. ABSENT: distended, guarding, mass, organolmegaly, rebound, tenderness Rectal exam: PRESENT: deferred Extremities exam: PRESENT: full ROM. ABSENT: calf tenderness, clubbing, pedal edema Neurological exam: PRESENT: alert, awake, oriented to person, oriented to place , oriented to time, oriented to situation, CN II-XII grossly intact. ABSENT: motor sensory deficit Psychiatric exam: PRESENT: appropriate affect, normal mood. ABSENT: homicidal ideation, suicidal ideation Skin exam: PRESENT: dry, intact, warm. ABSENT: cyanosis, rash Results Laboratory Results: 03/04/17 07:55 03/04/17 07:55 02/28/17 02/28/17 03/01/17 14:16 19:25 01:20 Troponin I < 0.012 < 0.012 < 0.012 Impressions: Lung Scan-VQ NM 02/28/17 00:00 IMPRESSION: No scintigraphic evidence of acute pulmonary emboli. Ventilation scan shows significant areas of decreased activity from obstructive lung disease Chest X-Ray 03/04/17 00:00 IMPRESSION: NEW PATCHY RIGHT LOWER LOBE AIRSPACE DISEASE MAY REPRESENT DEVELOPING PNEUMONIA. Assessment & Plan - Diagnosis (1) COPD exacerbation Is this a current diagnosis for this admission?: Yes Plan: Will continue current treatment. Will wean steroids hopefully tomorrow. (2) Respiratory failure with hypoxia Qualifiers: Chronicity: acute Qualified Code(s): J96.01 - Acute respiratory failure with hypoxia Is this a current diagnosis for this admission?: Yes Plan: Resolved but pt with significant wheezing. (3) Acute exacerbation of chronic bronchitis Is this a current diagnosis for this admission?: Yes Plan: Will continue current treatment. Hopefully will be able to wean steroids tomorrow. (4) Anxiety Is this a current diagnosis for this admission?: Yes Plan: Xanax PRN (5) Hypertension Qualifiers: Hypertension type: essential hypertension Qualified Code(s): I10 - Essential (primary) hypertension Is this a current diagnosis for this admission?: Yes Plan: Will continue current treatment. (6) Tobacco abuse Is this a current diagnosis for this admission?: Yes (7) GERD (gastroesophageal reflux disease) Qualifiers: Esophagitis presence: esophagitis presence not specified Qualified Code(s) : K21.9 - Gastro-esophageal reflux disease without esophagitis Is this a current diagnosis for this admission?: Yes Plan: Famotidine. (8) DVT prophylaxis Is this a current diagnosis for this admission?: Yes Plan: Lovenox. - Time Time Spent with patient: 15-24 minutes
[2017-03-05] MEDS: LORATADINE 10 MG TABLET PO SCH (22:05)
[2017-03-05] MEDS: MONTELUKAST SODIUM 10 MG TABLET PO SCH (22:05)
[2017-03-06] MEDS: METHYLPREDNISOLONE INJ 125 MG/2 ML SDV IV SCH ×3 (02:21→18:27)
[2017-03-06] MEDS: BENZONATATE 100 MG CAPSULE PO SCH ×3 (06:04→21:55)
[2017-03-06] MEDS: PIPERACILLIN SODIUM/TAZOBACTAM 4.5 GM in NORMAL SALINE 100 ML IV SCH ×2 (06:04→19:58)
[2017-03-06] MEDS: OXYCODONE-ACETAMINOPHEN 5-325 MG TABLET PO PRN ×2 (06:46→18:27)
[2017-03-06] MEDS: IPRATROPIUM/ALBUTEROL 0.5-2.5 MG/3 ML AMPUL NEB SCH ×4 (08:22→20:14)
[2017-03-06] MEDS: ALPRAZOLAM 0.25 MG TABLET PO PRN ×2 (08:49→18:27)
--- NOTE | 2017-03-06 09:14 | PDOC PROGRESS REPORT ---
Subjective Progress Note for:: 03/06/17 Subjective:: Pt states that he is still wheezing. Pt states that he feels short of breathe. Physical Exam Vital Signs: Temp Pulse Resp BP Pulse Ox 98.8 F 71 17 142/69 H 98 03/06/17 07:51 03/06/17 07:51 03/06/17 07:51 03/06/17 07:51 03/06/17 07:51 Intake & Output 03/05/17 03/06/17 03/07/17 06:59 06:59 06:59 Intake Total 1766 2104 Output Total 1100 225 Balance 666 1879 Weight 99.7 kg General appearance: PRESENT: no acute distress, well-developed, well-nourished Head exam: PRESENT: atraumatic, normocephalic Eye exam: PRESENT: conjunctiva pink, EOMI. ABSENT: scleral icterus Ear exam: PRESENT: normal external ear exam Mouth exam: PRESENT: moist, tongue midline Neck exam: ABSENT: carotid bruit, JVD, lymphadenopathy, thyromegaly Respiratory exam: PRESENT: prolonged expiratory phas, wheezes, other - with coarse breath sounds heard in all lung lares Cardiovascular exam: PRESENT: RRR. ABSENT: diastolic murmur, rubs, systolic murmur Pulses: PRESENT: normal dorsalis pedis pul GI/Abdominal exam: PRESENT: normal bowel sounds, soft. ABSENT: distended, guarding, mass, organolmegaly, rebound, tenderness Rectal exam: PRESENT: deferred Extremities exam: PRESENT: full ROM. ABSENT: calf tenderness, clubbing, pedal edema Neurological exam: PRESENT: alert, awake, oriented to person, oriented to place , oriented to time, oriented to situation, CN II-XII grossly intact. ABSENT: motor sensory deficit Psychiatric exam: PRESENT: appropriate affect, normal mood. ABSENT: homicidal ideation, suicidal ideation Skin exam: PRESENT: dry, intact, warm. ABSENT: cyanosis, rash Results Laboratory Results: 03/04/17 07:55 03/04/17 07:55 02/28/17 02/28/17 03/01/17 14:16 19:25 01:20 Troponin I < 0.012 < 0.012 < 0.012 Impressions: Lung Scan-VQ NM 02/28/17 00:00 IMPRESSION: No scintigraphic evidence of acute pulmonary emboli. Ventilation scan shows significant areas of decreased activity from obstructive lung disease Chest X-Ray 03/04/17 00:00 IMPRESSION: NEW PATCHY RIGHT LOWER LOBE AIRSPACE DISEASE MAY REPRESENT DEVELOPING PNEUMONIA. Assessment & Plan - Diagnosis (1) COPD exacerbation Is this a current diagnosis for this admission?: Yes Plan: Will continue current treatment. (2) Respiratory failure with hypoxia Qualifiers: Chronicity: acute Qualified Code(s): J96.01 - Acute respiratory failure with hypoxia Is this a current diagnosis for this admission?: Yes Plan: Resolved but pt with significant wheezing. (3) Acute exacerbation of chronic bronchitis Is this a current diagnosis for this admission?: Yes Plan: Will continue current treatment. (4) Anxiety Is this a current diagnosis for this admission?: Yes Plan: Xanax PRN (5) Hypertension Qualifiers: Hypertension type: essential hypertension Qualified Code(s): I10 - Essential (primary) hypertension Is this a current diagnosis for this admission?: Yes Plan: Will continue current treatment. (6) Tobacco abuse Is this a current diagnosis for this admission?: Yes Plan: Pt reports that he stopped smoking 3 months ago. (7) GERD (gastroesophageal reflux disease) Qualifiers: Esophagitis presence: esophagitis presence not specified Qualified Code(s) : K21.9 - Gastro-esophageal reflux disease without esophagitis Is this a current diagnosis for this admission?: Yes Plan: Famotidine. (8) DVT prophylaxis Is this a current diagnosis for this admission?: Yes Plan: Lovenox. - Time Time Spent with patient: Less than 15 minutes - No new changes today.
[2017-03-06] MEDS: BUDESONIDE/FORMOTEROL 160-4.5 MCG 60 PUFF/6 GM MDI IH SCH ×2 (10:42→21:56)
[2017-03-06] MEDS: ENOXAPARIN SODIUM INJ 40 MG/0.4 ML DISP.SYRIN SUBCUT SCH (10:43)
[2017-03-06] MEDS: FAMOTIDINE 20 MG TABLET PO SCH ×2 (10:44→21:55)
[2017-03-06] MEDS: MONTELUKAST SODIUM 10 MG TABLET PO SCH (21:55)
[2017-03-06] MEDS: LORATADINE 10 MG TABLET PO SCH (21:55)
[2017-03-07] MEDS: PIPERACILLIN SODIUM/TAZOBACTAM 4.5 GM in NORMAL SALINE 100 ML IV SCH ×5 (00:21→23:52)
[2017-03-07] MEDS: METHYLPREDNISOLONE INJ 125 MG/2 ML SDV IV SCH ×3 (01:48→21:01)
[2017-03-07] MEDS: OXYCODONE-ACETAMINOPHEN 5-325 MG TABLET PO PRN ×4 (01:48→18:37)
[2017-03-07] MEDS: ALPRAZOLAM 0.25 MG TABLET PO PRN ×3 (01:49→18:37)
[2017-03-07] MEDS: BENZONATATE 100 MG CAPSULE PO SCH ×3 (05:43→21:00)
[2017-03-07 06:34] LABS: HEMATOCRIT 42.1 % (37.9-51.0); HEMOGLOBIN 14.1 g/dL (13.5-17.0); HGB HCT DIFFERENCE 0.2; MEAN CORPUSCULAR HEMOGLOBIN 31.4 pg (27.0-33.4); MEAN CORPUSCULAR HGB CONC 33.5 g/dL (32.0-36.0); MEAN CORPUSCULAR VOLUME 94 fl (80-97); RED BLOOD COUNT 4.49 10^6/uL (4.35-5.55); RED CELL DISTRIBUTION WIDTH 15.3 % (11.5-14.0); WHITE BLOOD COUNT 20.8 10^3/uL (4.0-10.5)
[2017-03-07 06:58] LABS: BAND NEUTROPHILS % (MANUAL) 1 % (3-5); BASOPHILS % (MANUAL) 0 % (0-2); EOSINOPHILS % (MANUAL) 0 % (0-6); LYMPHOCYTES % (MANUAL) 6 % (13-45); NUCLEATED RED BLOOD CELLS 1 /100 WBC (0); TOTAL CELLS COUNTED 100
[2017-03-07 06:59] LABS: ANISOCYTOSIS 1+
[2017-03-07 07:09] LABS: ANION GAP 9 (5-19); BLOOD UREA NITROGEN 27 mg/dL (7-20); CALCIUM 9.1 mg/dL (8.4-10.2); CARBON DIOXIDE 24 mmol/L (22-30); CHLORIDE 103 mmol/L (98-107); CREATININE RESULT 1.02 mg/dL (0.52-1.25); GLUCOSE 182 mg/dL (75-110); POTASSIUM 4.4 mmol/L (3.6-5.0); SODIUM 136.4 mmol/L (137-145)
[2017-03-07] MEDS: IPRATROPIUM/ALBUTEROL 0.5-2.5 MG/3 ML AMPUL NEB SCH ×4 (08:29→20:16)
[2017-03-07] MEDS: BUDESONIDE/FORMOTEROL 160-4.5 MCG 60 PUFF/6 GM MDI IH SCH ×2 (10:41→21:01)
[2017-03-07] MEDS: FAMOTIDINE 20 MG TABLET PO SCH ×2 (10:42→21:00)
[2017-03-07] MEDS: ENOXAPARIN SODIUM INJ 40 MG/0.4 ML DISP.SYRIN SUBCUT SCH (10:45)
--- NOTE | 2017-03-07 11:30 | PDOC PROGRESS REPORT ---
Subjective Progress Note for:: 03/07/17 Subjective:: Pt states that he is still wheezing. Pt states that he is breathing better. Physical Exam Vital Signs: Temp Pulse Resp BP Pulse Ox 97.7 F 64 16 137/77 H 97 03/07/17 07:11 03/07/17 07:11 03/07/17 07:11 03/07/17 07:11 03/07/17 07:11 Intake & Output 03/06/17 03/07/17 03/08/17 06:59 06:59 06:59 Intake Total 2104 2487 Output Total 225 600 Balance 1879 1887 Weight 99.7 kg General appearance: PRESENT: no acute distress, well-developed, well-nourished Head exam: PRESENT: atraumatic, normocephalic Eye exam: PRESENT: conjunctiva pink, EOMI. ABSENT: scleral icterus Ear exam: PRESENT: normal external ear exam Mouth exam: PRESENT: moist, tongue midline Neck exam: ABSENT: carotid bruit, JVD, lymphadenopathy, thyromegaly Respiratory exam: PRESENT: prolonged expiratory phas, wheezes, other - diminished at bases Cardiovascular exam: PRESENT: RRR. ABSENT: diastolic murmur, rubs, systolic murmur Pulses: PRESENT: normal dorsalis pedis pul Vascular exam: PRESENT: normal capillary refill GI/Abdominal exam: PRESENT: normal bowel sounds, soft. ABSENT: distended, guarding, mass, organolmegaly, rebound, tenderness Rectal exam: PRESENT: deferred Extremities exam: PRESENT: full ROM. ABSENT: calf tenderness, clubbing, pedal edema Neurological exam: PRESENT: alert, awake, oriented to person, oriented to place , oriented to time, oriented to situation, CN II-XII grossly intact. ABSENT: motor sensory deficit Psychiatric exam: PRESENT: appropriate affect, normal mood. ABSENT: homicidal ideation, suicidal ideation Skin exam: PRESENT: dry, intact, warm. ABSENT: cyanosis, rash Results Laboratory Results: 03/07/17 06:01 03/07/17 06:01 03/07/17 03/07/17 06:01 06:01 WBC 20.8 H RBC 4.49 Hgb 14.1 Hct 42.1 MCV 94 MCH 31.4 MCHC 33.5 RDW 15.3 H Plt Count 170 Seg Neutrophils % Not Reportable Lymphocytes % Not Reportable Monocytes % Not Reportable Eosinophils % Not Reportable Basophils % Not Reportable Absolute Neutrophils Not Reportable Absolute Lymphocytes Not Reportable Absolute Monocytes Not Reportable Absolute Eosinophils Not Reportable Absolute Basophils Not Reportable Sodium 136.4 L Potassium 4.4 Chloride 103 Carbon Dioxide 24 Anion Gap 9 BUN 27 H Creatinine 1.02 Est GFR ( Amer) > 60 Est GFR (Non-Af Amer) > 60 Glucose 182 H Calcium 9.1 03/02/17 08:35 Sputum Gram Stain - Final 02/28/17 02/28/17 03/01/17 14:16 19:25 01:20 Troponin I < 0.012 < 0.012 < 0.012 Impressions: Lung Scan-VQ NM 02/28/17 00:00 IMPRESSION: No scintigraphic evidence of acute pulmonary emboli. Ventilation scan shows significant areas of decreased activity from obstructive lung disease Chest X-Ray 03/04/17 00:00 IMPRESSION: NEW PATCHY RIGHT LOWER LOBE AIRSPACE DISEASE MAY REPRESENT DEVELOPING PNEUMONIA. Assessment & Plan - Diagnosis (1) COPD exacerbation Is this a current diagnosis for this admission?: Yes Plan: Will continue current treatment. Will space steroids to Q12 hours. (2) Respiratory failure with hypoxia Qualifiers: Chronicity: acute Qualified Code(s): J96.01 - Acute respiratory failure with hypoxia Is this a current diagnosis for this admission?: Yes Plan: Resolved but pt with significant wheezing. Will space steroids Q12 hours (3) Acute exacerbation of chronic bronchitis Is this a current diagnosis for this admission?: Yes Plan: Will continue current treatment. Will space steroids to [id number] (4) Leukocytosis Is this a current diagnosis for this admission?: Yes Plan: Secondary to Steroids: Will continue to monitor. (5) Anxiety Is this a current diagnosis for this admission?: Yes Plan: Xanax PRN (6) Hypertension Qualifiers: Hypertension type: essential hypertension Qualified Code(s): I10 - Essential (primary) hypertension Is this a current diagnosis for this admission?: Yes Plan: Will continue current treatment. (7) Tobacco abuse Is this a current diagnosis for this admission?: Yes Plan: Pt reports that he stopped smoking 3 months ago. (8) GERD (gastroesophageal reflux disease) Qualifiers: Esophagitis presence: esophagitis presence not specified Qualified Code(s) : K21.9 - Gastro-esophageal reflux disease without esophagitis Is this a current diagnosis for this admission?: Yes Plan: Famotidine. (9) DVT prophylaxis Is this a current diagnosis for this admission?: Yes Plan: Lovenox. - Time Time Spent with patient: Less than 15 minutes
[2017-03-07] MEDS: MONTELUKAST SODIUM 10 MG TABLET PO SCH (21:01)
[2017-03-07] MEDS: LORATADINE 10 MG TABLET PO SCH (21:01)
[2017-03-08] MEDS: ALPRAZOLAM 0.25 MG TABLET PO PRN ×2 (00:59→09:49)
[2017-03-08] MEDS: OXYCODONE-ACETAMINOPHEN 5-325 MG TABLET PO PRN ×3 (00:59→17:31)
[2017-03-08] MEDS: BENZONATATE 100 MG CAPSULE PO SCH ×3 (05:57→21:20)
[2017-03-08] MEDS: PIPERACILLIN SODIUM/TAZOBACTAM 4.5 GM in NORMAL SALINE 100 ML IV SCH ×4 (05:57→23:20)
[2017-03-08] MEDS: IPRATROPIUM/ALBUTEROL 0.5-2.5 MG/3 ML AMPUL NEB SCH ×3 (08:29→19:38)
[2017-03-08] MEDS: FAMOTIDINE 20 MG TABLET PO SCH ×2 (09:49→21:19)
[2017-03-08] MEDS: METHYLPREDNISOLONE INJ 125 MG/2 ML SDV IV SCH (09:49)
[2017-03-08] MEDS: ENOXAPARIN SODIUM INJ 40 MG/0.4 ML DISP.SYRIN SUBCUT SCH (09:49)
[2017-03-08] MEDS: BUDESONIDE/FORMOTEROL 160-4.5 MCG 60 PUFF/6 GM MDI IH SCH ×2 (09:50→21:20)
[2017-03-08] MEDS ORDERED: MAG HYDROX/AL HYDROX/SIMETH SUSP 30 ML UDCUP PO PRN (10:34)
--- NOTE | 2017-03-08 14:12 | PDOC PROGRESS REPORT ---
Subjective Progress Note for:: 03/08/17 Subjective:: Pt states that he is feeling somewhat better today. Physical Exam Vital Signs: Temp Pulse Resp BP Pulse Ox 97.9 F 66 16 141/85 H 100 03/08/17 11:18 03/08/17 11:18 03/08/17 11:18 03/08/17 11:18 03/08/17 11:18 Intake & Output 03/07/17 03/08/17 03/09/17 06:59 06:59 06:59 Intake Total 2487 1796 Output Total 600 1000 Balance 1887 796 Weight 99.9 kg General appearance: PRESENT: no acute distress, well-developed, well-nourished Head exam: PRESENT: atraumatic, normocephalic Eye exam: PRESENT: conjunctiva pink, EOMI, PERRLA. ABSENT: scleral icterus Ear exam: PRESENT: bleeding Mouth exam: PRESENT: moist, tongue midline Neck exam: ABSENT: carotid bruit, JVD, lymphadenopathy, thyromegaly Respiratory exam: PRESENT: other - + Wheezing but much improved. + Prolonged Exp phase. Cardiovascular exam: PRESENT: RRR. ABSENT: diastolic murmur, rubs, systolic murmur Pulses: PRESENT: normal dorsalis pedis pul Vascular exam: PRESENT: normal capillary refill GI/Abdominal exam: PRESENT: normal bowel sounds, soft. ABSENT: distended, guarding, mass, organolmegaly, rebound, tenderness Rectal exam: PRESENT: deferred Extremities exam: PRESENT: full ROM. ABSENT: calf tenderness, clubbing, pedal edema Neurological exam: PRESENT: alert, awake, oriented to person, oriented to place , oriented to time, oriented to situation, CN II-XII grossly intact. ABSENT: motor sensory deficit Psychiatric exam: PRESENT: appropriate affect, normal mood. ABSENT: homicidal ideation, suicidal ideation Skin exam: PRESENT: dry, intact, warm. ABSENT: cyanosis, rash Results Laboratory Results: 03/07/17 06:01 03/07/17 06:01 03/02/17 08:35 Sputum Gram Stain - Final 03/02/17 08:35 Sputum Sputum Culture - Final [employer] Normal [place] 02/28/17 02/28/17 03/01/17 14:16 19:25 01:20 Troponin I < 0.012 < 0.012 < 0.012 Impressions: Lung Scan-VQ NM 02/28/17 00:00 IMPRESSION: No scintigraphic evidence of acute pulmonary emboli. Ventilation scan shows significant areas of decreased activity from obstructive lung disease Chest X-Ray 03/04/17 00:00 IMPRESSION: NEW PATCHY RIGHT LOWER LOBE AIRSPACE DISEASE MAY REPRESENT DEVELOPING PNEUMONIA. Assessment & Plan - Diagnosis (1) COPD exacerbation Is this a current diagnosis for this admission?: Yes Plan: Will continue current treatment. Will space steroids to Q24 hours. Will change breathing treatment to Q6h. (2) Respiratory failure with hypoxia Qualifiers: Chronicity: acute Qualified Code(s): J96.01 - Acute respiratory failure with hypoxia Is this a current diagnosis for this admission?: Yes Plan: Resolved but pt with significant wheezing. Will space steroids Q24 hours (3) Acute exacerbation of chronic bronchitis Is this a current diagnosis for this admission?: Yes Plan: Will continue current treatment. Will space steroids to [id number] and breathing treatment to [id number]. (4) Leukocytosis Is this a current diagnosis for this admission?: Yes Plan: Secondary to Steroids: Will continue to monitor. (5) Anxiety Is this a current diagnosis for this admission?: Yes Plan: Xanax PRN (6) Hypertension Qualifiers: Hypertension type: essential hypertension Qualified Code(s): I10 - Essential (primary) hypertension Is this a current diagnosis for this admission?: Yes Plan: Will continue current treatment. (7) Tobacco abuse Is this a current diagnosis for this admission?: Yes Plan: Pt reports that he stopped smoking 3 months ago. (8) GERD (gastroesophageal reflux disease) Qualifiers: Esophagitis presence: esophagitis presence not specified Qualified Code(s) : K21.9 - Gastro-esophageal reflux disease without esophagitis Is this a current diagnosis for this admission?: Yes Plan: Famotidine. (9) DVT prophylaxis Is this a current diagnosis for this admission?: Yes Plan: Lovenox. - Time Time Spent with patient: 15-24 minutes
[2017-03-08] MEDS ORDERED: LORAZEPAM 0.5 MG TABLET PO PRN (20:48)
[2017-03-08] MEDS: MONTELUKAST SODIUM 10 MG TABLET PO SCH (21:18)
[2017-03-08] MEDS: LORATADINE 10 MG TABLET PO SCH (21:19)
[2017-03-09] MEDS: PIPERACILLIN SODIUM/TAZOBACTAM 4.5 GM in NORMAL SALINE 100 ML IV SCH (05:36)
[2017-03-09] MEDS: BENZONATATE 100 MG CAPSULE PO SCH ×3 (05:36→21:20)
[2017-03-09] MEDS: OXYCODONE-ACETAMINOPHEN 5-325 MG TABLET PO PRN ×2 (05:43→17:14)
[2017-03-09 06:04] LABS: HEMATOCRIT 42.8 % (37.9-51.0); HEMOGLOBIN 14.2 g/dL (13.5-17.0); HGB HCT DIFFERENCE -0.2; MEAN CORPUSCULAR HEMOGLOBIN 31.4 pg (27.0-33.4); MEAN CORPUSCULAR HGB CONC 33.2 g/dL (32.0-36.0); MEAN CORPUSCULAR VOLUME 95 fl (80-97); RED BLOOD COUNT 4.52 10^6/uL (4.35-5.55); RED CELL DISTRIBUTION WIDTH 15.6 % (11.5-14.0); WHITE BLOOD COUNT 23.8 10^3/uL (4.0-10.5)
[2017-03-09 06:16] LABS: ANION GAP 8 (5-19); BLOOD UREA NITROGEN 26 mg/dL (7-20); CALCIUM 8.9 mg/dL (8.4-10.2); CARBON DIOXIDE 26 mmol/L (22-30); CHLORIDE 103 mmol/L (98-107); CREATININE RESULT 0.88 mg/dL (0.52-1.25); GLUCOSE 138 mg/dL (75-110); POTASSIUM 4.1 mmol/L (3.6-5.0); SODIUM 137.1 mmol/L (137-145)
[2017-03-09 06:23] LABS: BAND NEUTROPHILS % (MANUAL) 1 % (3-5); BASOPHILS % (MANUAL) 0 % (0-2); EOSINOPHILS % (MANUAL) 0 % (0-6); LYMPHOCYTES % (MANUAL) 10 % (13-45); TOTAL CELLS COUNTED 100
[2017-03-09 06:24] LABS: TOXIC VACUOLATION PRESENT
[2017-03-09 06:25] LABS: ANISOCYTOSIS 1+; TOXIC GRANULATION SLIGHT
[2017-03-09] MEDS: IPRATROPIUM/ALBUTEROL 0.5-2.5 MG/3 ML AMPUL NEB SCH ×3 (08:50→19:37)
[2017-03-09] MEDS ORDERED: METHYLPREDNISOLONE INJ 125 MG/2 ML SDV IV SCH (10:00)
[2017-03-09] MEDS: ALPRAZOLAM 0.25 MG TABLET PO PRN ×2 (10:43→17:18)
[2017-03-09] MEDS: ENOXAPARIN SODIUM INJ 40 MG/0.4 ML DISP.SYRIN SUBCUT SCH (10:44)
[2017-03-09] MEDS: FAMOTIDINE 20 MG TABLET PO SCH ×2 (10:44→21:20)
[2017-03-09] MEDS: BUDESONIDE/FORMOTEROL 160-4.5 MCG 60 PUFF/6 GM MDI IH SCH ×2 (10:44→21:20)
--- NOTE | 2017-03-09 10:59 | PDOC PROGRESS REPORT ---
Subjective Progress Note for:: 03/09/17 Subjective:: Pt continues to states that he is short of breath. Nursing states that pt has been ambulating around the floor multiple time with no difficulty. Physical Exam Vital Signs: Temp Pulse Resp BP Pulse Ox 97.6 F 58 L 16 127/59 H 99 03/09/17 07:28 03/09/17 07:28 03/09/17 07:28 03/09/17 07:28 03/09/17 07:28 Intake & Output 03/08/17 03/09/17 03/10/17 06:59 06:59 06:59 Intake Total 1796 1107 Output Total 1000 750 Balance 796 357 Weight 99.9 kg General appearance: PRESENT: no acute distress, well-developed, well-nourished Head exam: PRESENT: atraumatic, normocephalic Eye exam: PRESENT: conjunctiva pink, EOMI. ABSENT: scleral icterus Ear exam: PRESENT: normal external ear exam Mouth exam: PRESENT: moist, tongue midline Neck exam: ABSENT: carotid bruit, JVD, lymphadenopathy, thyromegaly Respiratory exam: PRESENT: other - scant wheezing, + slight prolonged exp phase. Cardiovascular exam: PRESENT: RRR. ABSENT: diastolic murmur, rubs, systolic murmur Pulses: PRESENT: normal dorsalis pedis pul GI/Abdominal exam: PRESENT: normal bowel sounds, soft. ABSENT: distended, guarding, mass, organolmegaly, rebound, tenderness Rectal exam: PRESENT: deferred Extremities exam: PRESENT: full ROM. ABSENT: calf tenderness, clubbing, pedal edema Neurological exam: PRESENT: alert, awake, oriented to person, oriented to place , oriented to time, oriented to situation, CN II-XII grossly intact. ABSENT: motor sensory deficit Psychiatric exam: PRESENT: appropriate affect, normal mood. ABSENT: homicidal ideation, suicidal ideation Skin exam: PRESENT: dry, intact, warm. ABSENT: cyanosis, rash Results Laboratory Results: 03/09/17 05:17 03/09/17 05:17 03/09/17 03/09/17 05:17 05:17 WBC 23.8 H RBC 4.52 Hgb 14.2 Hct 42.8 MCV 95 MCH 31.4 MCHC 33.2 RDW 15.6 H Plt Count 179 Seg Neutrophils % Not Reportable Lymphocytes % Not Reportable Monocytes % Not Reportable Eosinophils % Not Reportable Basophils % Not Reportable Absolute Neutrophils Not Reportable Absolute Lymphocytes Not Reportable Absolute Monocytes Not Reportable Absolute Eosinophils Not Reportable Absolute Basophils Not Reportable Sodium 137.1 Potassium 4.1 Chloride 103 Carbon Dioxide 26 Anion Gap 8 BUN 26 H Creatinine 0.88 Est GFR ( Amer) > 60 Est GFR (Non-Af Amer) > 60 Glucose 138 H Calcium 8.9 02/28/17 02/28/17 03/01/17 14:16 19:25 01:20 Troponin I < 0.012 < 0.012 < 0.012 Impressions: Lung Scan-VQ NM 02/28/17 00:00 IMPRESSION: No scintigraphic evidence of acute pulmonary emboli. Ventilation scan shows significant areas of decreased activity from obstructive lung disease Chest X-Ray 03/04/17 00:00 IMPRESSION: NEW PATCHY RIGHT LOWER LOBE AIRSPACE DISEASE MAY REPRESENT DEVELOPING PNEUMONIA. Assessment & Plan - Diagnosis (1) COPD exacerbation Is this a current diagnosis for this admission?: Yes Plan: Will continue current treatment. Will discontinue IV steroid and place on PO steroids. (2) Respiratory failure with hypoxia Qualifiers: Chronicity: acute Qualified Code(s): J96.01 - Acute respiratory failure with hypoxia Is this a current diagnosis for this admission?: Yes Plan: Resolved. (3) Acute exacerbation of chronic bronchitis Is this a current diagnosis for this admission?: Yes Plan: Will continue current treatment. Will place on Oral steroids. Plan to discharge home tomorrow. Will discontinue antibiotic (4) Leukocytosis Is this a current diagnosis for this admission?: Yes Plan: Secondary to Steroids: Will continue to monitor. (5) Anxiety Is this a current diagnosis for this admission?: Yes Plan: Xanax PRN (6) Hypertension Qualifiers: Hypertension type: essential hypertension Qualified Code(s): I10 - Essential (primary) hypertension Is this a current diagnosis for this admission?: Yes Plan: Will continue current treatment. (7) Tobacco abuse Is this a current diagnosis for this admission?: Yes Plan: Pt reports that he stopped smoking 3 months ago. (8) GERD (gastroesophageal reflux disease) Qualifiers: Esophagitis presence: esophagitis presence not specified Qualified Code(s) : K21.9 - Gastro-esophageal reflux disease without esophagitis Is this a current diagnosis for this admission?: Yes Plan: Famotidine. (9) DVT prophylaxis Is this a current diagnosis for this admission?: Yes Plan: Lovenox. - Time Time Spent with patient: 15-24 minutes Anticipated discharge: Home
[2017-03-09] MEDS: MONTELUKAST SODIUM 10 MG TABLET PO SCH (21:20)
[2017-03-09] MEDS: LORATADINE 10 MG TABLET PO SCH (21:20)
[2017-03-10] MEDS: OXYCODONE-ACETAMINOPHEN 5-325 MG TABLET PO PRN (03:01)
[2017-03-10 03:23] LABS: ANION GAP 5 (5-19); BLOOD UREA NITROGEN 30 mg/dL (7-20); CARBON DIOXIDE 29 mmol/L (22-30); CHLORIDE 103 mmol/L (98-107); CREATININE RESULT 1.07 mg/dL (0.52-1.25); GLUCOSE 92 mg/dL (75-110); MAGNESIUM 2.3 mg/dL (1.6-2.3); POTASSIUM 4.5 mmol/L (3.6-5.0); SODIUM 137.1 mmol/L (137-145)
[2017-03-10 03:39] LABS: HEMATOCRIT 44.7 % (37.9-51.0); HEMOGLOBIN 15.3 g/dL (13.5-17.0); HGB HCT DIFFERENCE 1.2; MEAN CORPUSCULAR HEMOGLOBIN 32.1 pg (27.0-33.4); MEAN CORPUSCULAR HGB CONC 34.2 g/dL (32.0-36.0); MEAN CORPUSCULAR VOLUME 94 fl (80-97); RED BLOOD COUNT 4.75 10^6/uL (4.35-5.55); RED CELL DISTRIBUTION WIDTH 15.3 % (11.5-14.0); WHITE BLOOD COUNT 19.7 10^3/uL (4.0-10.5)
[2017-03-10 03:45] LABS: BASOPHILS % (MANUAL) 0 % (0-2); EOSINOPHILS % (MANUAL) 0 % (0-6); LYMPHOCYTES % (MANUAL) 19 % (13-45); TOTAL CELLS COUNTED 100
[2017-03-10 03:46] LABS: ANISOCYTOSIS SLIGHT; OVALOCYTES SLIGHT; POIKILOCYTOSIS SLIGHT; TARGET CELLS SLIGHT; TOXIC VACUOLATION PRESENT
[2017-03-10 03:47] LABS: PLATELET CLUMPS PRESENT
[2017-03-10 05:12] LABS: FREE T3 3.5 pg/mL (2.77-5.27)
[2017-03-10] MEDS: BENZONATATE 100 MG CAPSULE PO SCH (05:21)
[2017-03-10] MEDS: ALPRAZOLAM 0.25 MG TABLET PO PRN (05:22)
--- NOTE | 2017-03-10 08:01 | EKG REPORT ---
SEVERITY:- NORMAL ECG - SINUS RHYTHM : Confirmed by: Tk Longoria MD 10-Mar-2017 08:00:44
[2017-03-10] MEDS: IPRATROPIUM/ALBUTEROL 0.5-2.5 MG/3 ML AMPUL NEB SCH (08:31)
[2017-03-10] MEDS: FAMOTIDINE 20 MG TABLET PO SCH (09:51)
[2017-03-10] MEDS: ENOXAPARIN SODIUM INJ 40 MG/0.4 ML DISP.SYRIN SUBCUT SCH (09:51)
[2017-03-10] MEDS: BUDESONIDE/FORMOTEROL 160-4.5 MCG 60 PUFF/6 GM MDI IH SCH (09:51)
[2017-03-10] MEDS ORDERED: PREDNISONE 20 MG TABLET PO SCH (10:00)
--- NOTE | 2017-03-10 12:17 | PDOC DISCHARGE SUMMARY ---
General - Admit/Disc Date/PCP Admission Date/Primary Care Provider: 02/28/17 08:53 Discharge Date: 03/10/17 - Discharge Diagnosis (1) Acute exacerbation of chronic bronchitis Is this a current diagnosis for this admission?: Yes Summary: In setting of presumed COPD and asthma: Patient was placed on breathing treatments, steroids, and antibiotics during this hospital stay. Patient's treatment regimen was tapered as patient demonstrated improvement. At time of discharge patient was placed on Medrol dose pack and breathing treatments. Patient has completed antibiotic regimen. (2) COPD exacerbation Is this a current diagnosis for this admission?: Yes Summary: Patient was given breathing treatments, steroids and antibiotics. At time of discharge patient was on nasal cannula and ambulating without any difficulty. (3) Respiratory failure with hypoxia Is this a current diagnosis for this admission?: Yes Summary: Resolved. (4) Leukocytosis Is this a current diagnosis for this admission?: Yes Summary: Secondary to Steroids. Resolving. (5) Anxiety Is this a current diagnosis for this admission?: Yes Summary: Pt will need to follow up with PCP outpatient. (6) Hypertension Is this a current diagnosis for this admission?: Yes Summary: Resolved once breathing improved. (7) Tobacco abuse Is this a current diagnosis for this admission?: Yes Summary: Pt encouraged to stop smoking. Pt was found smoking in the bathroom during this admission. (8) GERD (gastroesophageal reflux disease) Is this a current diagnosis for this admission?: Yes Summary: OTC PPI - Additional Information Resuscitation Status: Full Code Discharge Diet: Cardiac Discharge Activity: Activity As Tolerated Home Medications: Albuterol Sulfate [Ventolin Hfa] 2 puff IH Q4HP PRN 02/28/17 Budesonide/Formoterol Fumarate [Symbicort HFA 160-4.5 mcg Inhaler 6 gm] 2 puff IH Q12 02/28/17 Benzonatate [Tessalon Perles 100 mg Capsule] 100 mg PO Q8 #15 capsule 03/10/17 Methylprednisolone [Medrol Dosepack (4 mg/Tab) 21 Tab/Dosepak] 21 tab PO ASDIR # 21 dspk 03/10/17 History of Present Illness History of Present Illness: KENN JESSICA is a 61 year old male was admitted to the hospital for respiratory distress. Patient was found to have Suspected COPD and asthma. Patient was placed on breathing treatments, steroids, and antibiotics. Patient demonstrated improvement however very slowly. Patient was given medication for anxiety and pain however this was discontinued at time of discharge. Patient was found smoking in the hospital bathroom during hospital stay. Patient was encouraged to stop smoking. At time of discharge patient was in stable condition requiring no nasal cannula with ambulating. Patient will be discharged home. Physical Exam Vital Signs: Temp Pulse Resp BP Pulse Ox 97.7 F 61 16 109/54 L 97 03/10/17 07:16 03/10/17 07:16 03/10/17 07:16 03/10/17 07:16 03/10/17 07:16 Intake & Output 03/09/17 03/10/17 03/11/17 06:59 06:59 06:59 Intake Total 1107 1307 Output Total 750 1150 Balance 357 157 Weight 101.6 kg General appearance: PRESENT: no acute distress, well-developed, well-nourished Head exam: PRESENT: atraumatic, normocephalic Eye exam: PRESENT: conjunctiva pink, EOMI, PERRLA. ABSENT: scleral icterus Ear exam: PRESENT: normal external ear exam Mouth exam: PRESENT: moist, tongue midline Neck exam: ABSENT: carotid bruit, JVD, lymphadenopathy, thyromegaly Respiratory exam: PRESENT: clear to auscultation jonathan. ABSENT: rales, rhonchi, wheezes Cardiovascular exam: PRESENT: RRR. ABSENT: diastolic murmur, rubs, systolic murmur Pulses: PRESENT: normal dorsalis pedis pul Vascular exam: PRESENT: normal capillary refill GI/Abdominal exam: PRESENT: normal bowel sounds, soft. ABSENT: distended, guarding, mass, organolmegaly, rebound, tenderness Rectal exam: PRESENT: deferred Extremities exam: PRESENT: full ROM. ABSENT: calf tenderness, clubbing, pedal edema Neurological exam: PRESENT: alert, awake, oriented to person, oriented to place , oriented to time, oriented to situation, CN II-XII grossly intact. ABSENT: motor sensory deficit Psychiatric exam: PRESENT: appropriate affect, normal mood. ABSENT: homicidal ideation, suicidal ideation Skin exam: PRESENT: dry, intact, warm. ABSENT: cyanosis, rash Results Laboratory Results: 03/10/17 03:01 03/10/17 03:01 03/10/17 03/10/17 03/10/17 03:01 03:01 03:01 WBC 19.7 H RBC 4.75 Hgb 15.3 Hct 44.7 MCV 94 MCH 32.1 MCHC 34.2 RDW 15.3 H Plt Count 153 Seg Neutrophils % Not Reportable Lymphocytes % Not Reportable Monocytes % Not Reportable Eosinophils % Not Reportable Basophils % Not Reportable Absolute Neutrophils Not Reportable Absolute Lymphocytes Not Reportable Absolute Monocytes Not Reportable Absolute Eosinophils Not Reportable Absolute Basophils Not Reportable Sodium 137.1 Potassium 4.5 Chloride 103 Carbon Dioxide 29 Anion Gap 5 BUN 30 H Creatinine 1.07 Est GFR ( Amer) > 60 Est GFR (Non-Af Amer) > 60 Glucose 92 Calcium 9.0 Magnesium 2.3 TSH 6.19 H Free T4 Free T3 pg/mL 03/10/17 03:01 WBC RBC Hgb Hct MCV MCH MCHC RDW Plt Count Seg Neutrophils % Lymphocytes % Monocytes % Eosinophils % Basophils % Absolute Neutrophils Absolute Lymphocytes Absolute Monocytes Absolute Eosinophils Absolute Basophils Sodium Potassium Chloride Carbon Dioxide Anion Gap BUN Creatinine Est GFR ( Amer) Est GFR (Non-Af Amer) Glucose Calcium Magnesium TSH Free T4 0.70 L Free T3 pg/mL 3.50 02/28/17 02/28/17 03/01/17 14:16 19:25 01:20 Troponin I < 0.012 < 0.012 < 0.012 03/10/17 03:01 Troponin I < 0.012 Impressions: Lung Scan-VQ NM 02/28/17 00:00 IMPRESSION: No scintigraphic evidence of acute pulmonary emboli. Ventilation scan shows significant areas of decreased activity from obstructive lung disease Chest X-Ray 03/04/17 00:00 IMPRESSION: NEW PATCHY RIGHT LOWER LOBE AIRSPACE DISEASE MAY REPRESENT DEVELOPING PNEUMONIA.
[2017-03-10 12:34] VITALS: BP 144/83
== END 2017-03-10 13:07 | disposition home or self-care (01) | DRG 190 ==
LOC: ER 06:11 → EH 08:25 → UNDOADMIN 08:25 → 3W 08:53 → EH 09:47
PROVIDERS: ADMIT Family Medicine; ATTEND Family Medicine
PROC: 5A09457 Assistance with Respiratory Ventilation, 24-96 Consecutive Hours, Continuous Positive Airway Pressure (ICD-10-PCS; principal; 2017-02-28)
DX: J44.1 Chronic obstructive pulmonary disease with (acute) exacerbation (principal); J96.01 Acute respiratory failure with hypoxia; F41.9 Anxiety disorder, unspecified; I10 Essential (primary) hypertension; K21.9 Gastro-esophageal reflux disease without esophagitis; J45.909 Unspecified asthma, uncomplicated; G89.29 Other chronic pain; M54.9 Dorsalgia, unspecified; M19.90 Unspecified osteoarthritis, unspecified site; F17.210 Nicotine dependence, cigarettes, uncomplicated; Z82.49 Family history of ischemic heart disease and other diseases of the circulatory system; Z96.649 Presence of unspecified artificial hip joint
CPT/HCPCS: 36415; 36600; 71010; 71020; 78582; 80048; 80053; 82550; 82553; 82803; 83735; 83880; 84439; 84443; 84481; 84484; 85025; 85610; 87070; 87077; 87186; 87205; 93005; 93010; 94640; 94660; 94799; 96365; 96375; 99291; A9540; A9567; J0456; J1650; J2543; J2930; J3105; J3475; J3490; J7030; J7060; J7512; J7620; Q9969

== ENCOUNTER → 2017-10-14 | Outpatient (CLI) | payer MEDICARE, MEDICAID ==
--- NOTE | 2017-10-14 15:03 | EKG REPORT ---
SEVERITY:- NORMAL ECG - SINUS RHYTHM : Confirmed by: Mook Samano 14-Oct-2017 15:02:20
== END ==
LOC: OD 12:05
PROVIDERS: ATTEND Physician Assistant
DX: Z01.818 Encounter for other preprocedural examination (principal); J44.9 Chronic obstructive pulmonary disease, unspecified; F41.9 Anxiety disorder, unspecified; G47.30 Sleep apnea, unspecified
CPT/HCPCS: 93005; 93010

== ENCOUNTER 2018-03-17 04:41 | Emergency (ER) | payer MEDICARE, MEDICAID ==
[2018-03-17] MEDS ORDERED: PREDNISONE 20 MG TABLET PO ONE (05:41)
[2018-03-17] MEDS ORDERED: IPRATROPIUM/ALBUTEROL 0.5-2.5 MG/3 ML AMPUL NEB ONE (05:41)
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
[2018-03-17 06:18] LABS: ABSOLUTE BASOPHILS # (AUTO) 0.1 10^3/uL (0.0-0.2); ABSOLUTE EOSINOPHILS # (AUTO) 0.1 10^3/uL (0.0-0.6); ABSOLUTE LYMPHOCYTES (AUTO) 2.2 10^3/uL (0.5-4.7); ABSOLUTE NEUT (AUTO) 8.4 10^3/uL (1.7-8.2); BASOPHILS % (AUTO) 0.5 % (0-2); EOSINOPHILS % (AUTO) 0.9 % (0-6); HEMATOCRIT 45.9 % (37.9-51.0); HEMOGLOBIN 15.4 g/dL (13.5-17.0); LYMPHOCYTES % (AUTO) 18.9 % (13-45); MEAN CORPUSCULAR HEMOGLOBIN 29.7 pg (27.0-33.4); MEAN CORPUSCULAR HGB CONC 33.4 g/dL (32.0-36.0); MEAN CORPUSCULAR VOLUME 89 fl (80-97); MONOCYTES % (AUTO) 8.2 % (3-13); PLATELET COUNT 188 10^3/uL (150-450); RED BLOOD COUNT 5.18 10^6/uL (4.35-5.55); RED CELL DISTRIBUTION WIDTH 16.9 % (11.5-14.0); SEGMENTED NEUTROPHILS % (AUTO) 71.5 % (42-78); TOTAL CELLS COUNTED % (AUTO) 100 %; WHITE BLOOD COUNT 11.8 10^3/uL (4.0-10.5)
[2018-03-17] MEDS ORDERED: ACETAMINOPHEN 325 MG TABLET PO ONE (06:31)
[2018-03-17] MEDS ORDERED: IBUPROFEN 400 MG TABLET PO ONE (07:03)
[2018-03-17 07:06] LABS: ALANINE AMINOTRANSFERASE 19 U/L (21-72); ALBUMIN 4.1 g/dL (3.5-5.0); ALKALINE PHOSPHATASE 93 U/L (38-126); ANION GAP 8 (5-19); ASPARTATE AMINO TRANSFERASE 37 U/L (17-59); BILIRUBIN,DIRECT 0.4 mg/dL (0.0-0.4); BILIRUBIN,TOTAL 0.6 mg/dL (0.2-1.3); BLOOD UREA NITROGEN 35 mg/dL (7-20); CALCIUM 9.1 mg/dL (8.4-10.2); CARBON DIOXIDE 20 mmol/L (22-30); CHLORIDE 110 mmol/L (98-107); GLUCOSE 102 mg/dL (75-110); POTASSIUM 4.5 mmol/L (3.6-5.0); SODIUM 138.2 mmol/L (137-145); TOTAL PROTEIN 7.2 g/dL (6.3-8.2)
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
--- NOTE | 2018-03-17 07:47 | RADIOLOGY REPORT (SQ) ---
Clinical History : chest tightness , Exam : Portable AP view of the chest 03/17/2018 5:40 AM CDT Comparisons : PA and lateral views of the chest March 04, 2017 Findings : The lungs are clear without focal consolidation or pleural effusion. The heart is normal in size. The mediastinal contours are normal in appearance. The thoracic spine is age appropriate. The shoulders are unremarkable. Limited evaluation of the upper abdomen demonstrates no gross abnormalities. Impression: No acute cardiopulmonary disease (stable appearing chest).
[2018-03-17 08:32] VITALS: BP 115/82
--- NOTE | 2018-03-18 15:19 | EKG REPORT ---
SEVERITY:- BORDERLINE ECG - SINUS RHYTHM BORDERLINE T WAVE ABNORMALITIES : Confirmed by: Susana Tay MD 18-Mar-2018 15:19:21
== END 2018-03-17 08:31 | disposition home or self-care (01) ==
LOC: ER 04:41
DX: J45.20 Mild intermittent asthma, uncomplicated (principal); J44.9 Chronic obstructive pulmonary disease, unspecified; G44.209 Tension-type headache, unspecified, not intractable; R06.02 Shortness of breath; I10 Essential (primary) hypertension
CPT/HCPCS: 93005; 94640; 99285; 36415; 85025; 80053; 84484; 71045; 93010; A9270 ×3; J3490; J7512; J7620